=== PATIENT | male | born 1990 | race American Indian/Alaskan Native ===

== ENCOUNTER 2019-04-23 14:10 | Emergency (ER) | payer MEDICARE ==
[2019-04-23 14:25] VITALS: BP 112/50
--- NOTE | 2019-04-23 14:25 | Event Note ---
ED Screening Note Date of service: 04/23/19 Time: 14:23 ED Screening Note: 28 y o f presents to ED cc of generalized pain from sickle cell crisis while at work today This initial assessment/diagnostic orders/clinical plan/treatment(s) is/are subject to change based on patients health status, clinical progression and re- assessment by fellow clinical providers in the ED. Further treatment and workup at subsequent clinical providers discretion. Patient/guardian urged not to elope from the ED as their condition may be serious if not clinically assessed and managed. Initial orders include: labs main side eval
[2019-04-23 15:55] LABS: Hematocrit 27.6 % (35.5-45.6); Hemoglobin 9.2 gm/dl (11.8-15.2); Mean Corpuscular HGB Conc 33 % (32-34); Mean Corpuscular Volume 85 fl (84-94); Platelet Count 301 K/mm3 (140-440); Red Blood Count 3.24 M/mm3 (3.65-5.03); Red Cell Distribution Width 19.9 % (13.2-15.2)
[2019-04-23 16:17] LABS: BUN/Creatinine Ratio 14; Blood Urea Nitrogen 13 mg/dL (9-20); Calcium 9.1 mg/dL (8.4-10.2); Hemolysis Index 12
[2019-04-23] MEDS ORDERED: KETOROLAC 30 MG/1 ML INJ IV ONE (16:44)
[2019-04-23] MEDS ORDERED: SODIUM CHLORIDE 0.9% 1000 ML 1,000 ML IV ONE (16:44)
--- NOTE | 2019-04-23 16:48 | Emergency Department Report ---
ED General Adult HPI - General Chief complaint: Sickle Cell Crisis Stated complaint: SICKLE CELL PAIN Time Seen by Provider: 04/23/19 16:34 Source: patient Mode of arrival: Ambulatory Limitations: No Limitations - History of Present Illness Initial comments: Patient is 28-year-old male with history of sickle cell disease. Patient presented to the ER complaining of generalized body pain for the last 2 days. Patient stated that he is on Percocet and he run out of his pain medicine today. Patient denied any fever or chills. 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 - Related Data Home Medications Medication Instructions Recorded Confirmed Last Taken Deferasirox [Exjade] 500 mg PO DAILY 05/17/13 06/03/15 06/02/15 09:00 Hydroxyurea [Hydrea] 2,000 mg PO DAILY 01/03/14 06/03/15 06/02/15 09:00 Previous Rx's Medication Instructions Recorded Last Taken Type Folic Acid [Folvite] 1 mg PO DAILY #30 tablet 05/22/13 06/02/15 09:00 Rx HYDROcodone/APAP 10-325 [[place] 1 each PO Q6HR PRN #14 tablet 06/03/15 Unknown Rx 10/325] HYDROcodone/APAP 7.5-325 [[place] 1 each PO Q6HR PRN #20 tablet 11/12/15 Unknown Rx 7.5/325] oxyCODONE /ACETAMINOPHEN [Percocet 1 tab PO Q6HR PRN #10 tablet 11/12/15 Unknown Rx 5/325] HYDROcodone/ACETAMINOPHEN [[place]amrock 1 each PO Q6HR PRN #10 tablet 03/18/18 Unknown Rx 5-325 Tablet] HYDROcodone/APAP 10-325 [[place] 1 each PO Q6H PRN #20 tablet 05/09/18 Unknown Rx 10-325 mg TAB] Ibuprofen [Motrin 800 MG tab] 800 mg PO Q8HR PRN #20 tablet 05/09/18 Unknown Rx Allergies Allergy/AdvReac Type Severity Reaction Status Date / Time meperidine HCl [From Demerol] Allergy Unknown Verified 05/09/18 10:18 ED Review of Systems ROS: Stated complaint: SICKLE CELL PAIN Other details as noted in HPI Comment: All other systems reviewed and negative Constitutional: denies: chills, fever Respiratory: denies: cough, shortness of breath Cardiovascular: denies: chest pain Gastrointestinal: denies: abdominal pain, nausea, vomiting Neurological: denies: headache ED Past Medical Hx - Past Medical History Previous Medical History?: Yes Hx Sickle Cell Disease: Yes Additional medical history: Bilateral hip AVN - Surgical History Past Surgical History?: Yes Hx Cholecystectomy: Yes Additional Surgical History: port r) chest wall, states is not working is clotted off - Social History Smoking Status: Never Smoker Substance Use Type: None - Medications Home Medications: Home Medications Medication Instructions Recorded Confirmed Last Taken Type Deferasirox [Exjade] 500 mg PO DAILY 05/17/13 06/03/15 06/02/15 09:00 History Folic Acid [Folvite] 1 mg PO DAILY #30 tablet 05/22/13 06/03/15 06/02/15 09:00 Rx Hydroxyurea [Hydrea] 2,000 mg PO DAILY 01/03/14 06/03/15 06/02/15 09:00 History HYDROcodone/APAP 10-325 [[place] 1 each PO Q6HR PRN #14 tablet 06/03/15 Unknown Rx 10/325] HYDROcodone/APAP 7.5-325 [[place] 1 each PO Q6HR PRN #20 tablet 11/12/15 Unknown Rx 7.5/325] oxyCODONE /ACETAMINOPHEN [Percocet 1 tab PO Q6HR PRN #10 tablet 11/12/15 Unkno wn Rx 5/325] HYDROcodone/ACETAMINOPHEN [[place]rock 1 each PO Q6HR PRN #10 tablet 03/18/18 Unknown Rx 5-325 Tablet] HYDROcodone/APAP 10-325 [[place]rock 1 each PO Q6H PRN #20 tablet 05/09/18 Unknown Rx 10-325 mg TAB] Ibuprofen [Motrin 800 MG tab] 800 mg PO Q8HR PRN #20 tablet 05/09/18 Unknown Rx ED Physical Exam - General Limitations: No Limitations General appearance: alert, in no apparent distress - Head Head exam: Present: atraumatic, normocephalic, normal inspection - Eye Eye exam: Present: normal appearance - ENT ENT exam: Present: normal exam, normal orophraynx, mucous membranes moist - Neck Neck exam: Present: normal inspection, full ROM. Absent: tenderness, meningismus, lymphadenopathy, thyromegaly - Respiratory Respiratory exam: Present: normal lung sounds bilaterally - Cardiovascular Cardiovascular Exam: Present: regular rate, normal rhythm, normal heart sounds - GI/Abdominal GI/Abdominal exam: Present: soft, normal bowel sounds. Absent: distended, tenderness, guarding, rebound, rigid, organomegaly, mass, bruit, pulsatile mass, hernia - Extremities Exam Extremities exam: Present: normal inspection, full ROM, normal capillary refill. Absent: pedal edema, calf tenderness - Back Exam Back exam: Present: normal inspection, full ROM. Absent: CVA tenderness (R), CVA tenderness (L) - Neurological Exam Neurological exam: Present: alert, oriented X3, CN II-XII intact, normal gait, reflexes normal - Psychiatric Psychiatric exam: Present: normal mood - Skin Skin exam: Present: warm, intact, normal color ED Course Vital Signs 04/23/19 14:22 Temperature 98.7 F Pulse Rate 100 H Respiratory 16 Rate Blood Pressure 112/50 O2 Sat by Pulse 96 Oximetry ED Medical Decision Making - Lab Data Result diagrams: 04/23/19 15:22 04/23/19 15:22 - Medical Decision Making Patient is 28-year-old male with history of sickle cell disease. Patient presented to the ER complaining of generalized body pain for the last 2 days. Patient stated that he is on Percocet and he run out of his pain medicine today. Patient denied any fever or chills. 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 Patient labs reviewed and is unremarkable. Reticulocyte count is less than his normal average. Patient is a sleeping comfortably in the ER in no distress. I have to wake him to examine him. Patient asked for Dilaudid and Benadryl and he stated that he will not take any other medication for pain. I reviewed patient reports on [facility] aware and I found that patient had just filled a prescription for Percocets, 90 tablets on April 16 which is 7 days ago. Patient also had a multiple pharmacy and prescribers. 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 I counseled the patient on that and offer him a referral to drug rehabilitation patient declined. Critical care attestation.: If time is entered above; I have spent that time in minutes in the direct care of this critically ill patient, excluding procedure time. ED Disposition Clinical Impression: Sickle cell disease, Drug-seeking behavior, Narcotic abuse Disposition: ELOPED Is pt being admited?: No Condition: Stable Instructions: Narcotic Abuse (ED) Referrals: PRIMARY CARE, [Referring] - 3-5 Days
[2019-04-23 19:17] LABS: Basophils % (Manual) 0 % (0.0-1.8); Total Cells Counted 100
[2019-04-23 19:18] LABS: Anisocytosis 1+; Large Platelets 1+; Platelet Estimate Consistent w Auto; Sickle Cells 1+
== END 2019-04-23 17:26 | disposition left against medical advice (07) ==
LOC: ED 14:10
DX: D57.1 Sickle-cell disease without crisis (principal); F11.10 Opioid abuse, uncomplicated; Z76.5 Malingerer [conscious simulation]; Z90.49 Acquired absence of other specified parts of digestive tract; Z79.899 Other long term (current) drug therapy; Z88.8 Allergy status to other drugs, medicaments and biological substances
CPT/HCPCS: 36415; 80048; 85007; 85025; 85045; 96374; 99283; J1885; J7030

== ENCOUNTER 2019-07-15 10:20 | Emergency (ER) | payer MEDICARE ==
[2019-07-15] MEDS ORDERED: ONDANSETRON 4 MG/2 ML INJ IV ONE (11:35)
[2019-07-15] MEDS ORDERED: MORPHINE 4 MG/1 ML INJ IV ONE ×2 (11:35→12:30)
[2019-07-15] MEDS ORDERED: SODIUM CHLORIDE 0.9% 1000 ML 1,000 ML IV ONE ×2 (11:35)
[2019-07-15] MEDS ORDERED: diphenhydrAMINE 50 MG/ML VIAL IV ONE (11:38)
[2019-07-15 11:50] LABS: Hematocrit 24.1 % (35.5-45.6); Mean Corpuscular HGB Conc 33 % (32-34); Mean Corpuscular Volume 80 fl (84-94); Platelet Count 476 K/mm3 (140-440)
[2019-07-15 11:55] LABS: Red Cell Distribution Width 28.1 % (13.2-15.2)
--- NOTE | 2019-07-15 11:59 | Emergency Department Report ---
ED General Adult HPI - General Chief complaint: Sickle Cell Crisis Stated complaint: SICKLE CELL CRISIS Time Seen by Provider: 07/15/19 11:12 Source: patient Mode of arrival: Ambulatory Limitations: No Limitations - History of Present Illness Initial comments: Patient presents to the emergency department with a chief complaint of sickle cell crisis. Patient states for the last week he has been fighting a sinus cold and was treating his sickle cell pain at home with hydroxyurea, folic acid, and occasional Percocet. Patient states this morning he went out of his home to take his nephew to school in the cold weather causes pain to become worse. Sai james denies any chest pain. Patient states the pain is located in his elbows and knees which is consistent with his prior sickle cell flareups. -: Gradual Severity scale (0 -10): 9 Quality: sharp Consistency: constant Improves with: none Worsens with: none Associated Symptoms: denies other symptoms Treatments Prior to Arrival: none - Related Data Home Medications Medication Instructions Recorded Confirmed Last Taken Deferasirox [Exjade] 500 mg PO DAILY 05/17/13 06/03/15 06/02/15 09:00 Hydroxyurea [Hydrea] 2,000 mg PO DAILY 01/03/14 06/03/15 06/02/15 09:00 Previous Rx's Medication Instructions Recorded Last Taken Type Folic Acid [Folvite] 1 mg PO DAILY #30 tablet 05/22/13 06/02/15 09:00 Rx HYDROcodone/APAP 10-325 [Omega 1 each PO Q6HR PRN #14 tablet 06/03/15 Unknown Rx 10/325] HYDROcodone/APAP 7.5-325 [Omega 1 each PO Q6HR PRN #20 tablet 11/12/15 Unknown Rx 7.5/325] oxyCODONE /ACETAMINOPHEN [Percocet 1 tab PO Q6HR PRN #10 tablet 11/12/15 Unknown Rx 5/325] HYDROcodone/ACETAMINOPHEN [Omega 1 each PO Q6HR PRN #10 tablet 03/18/18 Unknown Rx 5-325 Tablet] HYDROcodone/APAP 10-325 [Omega 1 each PO Q6H PRN #20 tablet 05/09/18 Unknown Rx 10-325 mg TAB] Ibuprofen [Motrin 800 MG tab] 800 mg PO Q8HR PRN #20 tablet 05/09/18 Unknown Rx Oxycodone HCl/Acetaminophen 1 each PO Q6HR PRN #12 tablet 07/15/19 Unknown Rx [Percocet 10/325 mg] Allergies Allergy/AdvReac Type Severity Reaction Status Date / Time meperidine HCl [From Demerol] Allergy Unknown Verified 05/09/18 10:18 ED Review of Systems ROS: Stated complaint: SICKLE CELL CRISIS Other details as noted in HPI Constitutional: denies: chills, fever Eyes: denies: eye pain, eye discharge, vision change ENT: denies: ear pain, throat pain Respiratory: denies: cough, shortness of breath, wheezing Cardiovascular: denies: chest pain, palpitations Endocrine: no symptoms reported Gastrointestinal: denies: abdominal pain, nausea, diarrhea Genitourinary: denies: urgency, dysuria Musculoskeletal: denies: back pain, joint swelling, arthralgia Skin: denies: rash, lesions Neurological: denies: headache, weakness, paresthesias Psychiatric: denies: anxiety, depression Hematological/Lymphatic: denies: easy bleeding, easy bruising ED Past Medical Hx - Past Medical History Previous Medical History?: Yes Hx Sickle Cell Disease: Yes Additional medical history: Bilateral hip AVN - Surgical History Past Surgical History?: Yes Hx Cholecystectomy: Yes Additional Surgical History: port r) chest wall, states is not working is clotted off - Social History Smoking Status: Never Smoker Substance Use Type: None - Medications Home Medications: Home Medications Medication Instructions Recorded Confirmed Last Taken Type Deferasirox [Exjade] 500 mg PO DAILY 05/17/13 06/03/15 06/02/15 09:00 History Folic Acid [Folvite] 1 mg PO DAILY #30 tablet 05/22/13 06/03/15 06/02/15 09:00 Rx Hydroxyurea [Hydrea] 2,000 mg PO DAILY 01/03/14 06/03/15 06/02/15 09:00 History HYDROcodone/APAP 10-325 [Omega 1 each PO Q6HR PRN #14 tablet 06/03/15 Unknown Rx 10/325] HYDROcodone/APAP 7.5-325 [Omega 1 each PO Q6HR PRN #20 tablet 11/12/15 Unknown Rx 7.5/325] oxyCODONE /ACETAMINOPHEN [Percocet 1 tab PO Q6HR PRN #10 tablet 06/30/16 Unknown Rx 5/325] HYDROcodone/ACETAMINOPHEN [Omega 1 each PO Q6HR PRN #10 tablet 03/18/18 Unknown Rx 5-325 Tablet] HYDROcodone/APAP 10-325 [Omega 1 each PO Q6H PRN #20 tablet 05/09/18 Unknown Rx 10-325 mg TAB] Ibuprofen [Motrin 800 MG tab] 800 mg PO Q8HR PRN #20 tablet 05/09/18 Unknown Rx Oxycodone HCl/Acetaminophen 1 each PO Q6HR PRN #12 tablet 07/15/19 Unknown Rx [Percocet 10/325 mg] ED Physical Exam - General Limitations: No Limitations General appearance: alert, in no apparent distress - Head Head exam: Present: atraumatic, normocephalic - Eye Eye exam: Present: normal appearance, PERRL, EOMI - ENT ENT exam: Present: mucous membranes dry - Neck Neck exam: Present: normal inspection - Respiratory Respiratory exam: Present: normal lung sounds bilaterally. Absent: respiratory distress - Cardiovascular Cardiovascular Exam: Present: regular rate, normal rhythm. Absent: systolic murmur, diastolic murmur, rubs, gallop - GI/Abdominal GI/Abdominal exam: Present: soft, normal bowel sounds. Absent: distended, tenderness - Rectal Rectal exam: Present: deferred - Extremities Exam Extremities exam: Present: normal inspection - Back Exam Back exam: Present: normal inspection - Neurological Exam Neurological exam: Present: alert, oriented X3, CN II-XII intact. Absent: motor sensory deficit - Psychiatric Psychiatric exam: Present: normal affect, normal mood - Skin Skin exam: Present: warm, dry, intact, normal color. Absent: rash ED Course Vital Signs 07/15/19 07/15/19 07/15/19 10:25 11:41 11:53 Temperature 97.8 F Pulse Rate 70 81 Respiratory 20 15 16 Rate Blood Pressure 104/56 Blood Pressure 106/56 [Right] O2 Sat by Pulse 98 99 Oximetry ED Medical Decision Making - Lab Data Result diagrams: 07/15/19 11:28 07/15/19 11:28 Lab Results 07/15/19 07/15/19 Range/Units 11:28 11:28 WBC 14.4 H (4.5-11.0) K/mm3 RBC 3.00 L (3.65-5.03) M/mm3 Hgb 8.0 L (11.8-15.2) gm/dl Hct 24.1 L (35.5-45.6) % MCV 80 L (84-94) fl MCH 27 L (28-32) pg MCHC 33 (32-34) % RDW 28.1 H (13.2-15.2) % Plt Count 476 H (140-440) K/mm3 Lymph # Tripe Cooker Add Manual Diff Complete Total Counted 100 Seg Neuts % (Manual) 50.0 (40.0-70.0) % Band Neutrophils % 1.0 % Lymphocytes % (Manual) 35.0 (13.4-35.0) % Reactive Lymphs % (Man) 0 % Monocytes % (Manual) 6.0 (0.0-7.3) % Eosinophils % (Manual) 8.0 H (0.0-4.3) % Basophils % (Manual) 0 (0.0-1.8) % Metamyelocytes % 0 % Myelocytes % 0 % Promyelocytes % 0 % Blast Cells % 0 % Nucleated RBC % Not Reportable Seg Neutrophils # Man 7.2 (1.8-7.7) K/mm3 Band Neutrophils # 0.1 K/mm3 Lymphocytes # (Manual) 5.0 (1.2-5.4) K/mm3 Abs React Lymphs (Man) 0.0 K/mm3 Monocytes # (Manual) 0.9 H (0.0-0.8) K/mm3 Eosinophils # (Manual) 1.2 H (0.0-0.4) K/mm3 Basophils # (Manual) 0.0 (0.0-0.1) K/mm3 Metamyelocytes # 0.0 K/mm3 Myelocytes # 0.0 K/mm3 Promyelocytes # 0.0 K/mm3 Blast Cells # 0.0 K/mm3 WBC Morphology Not Reportable Hypersegmented Neuts Not Reportable Hyposegmented Neuts Not Reportable Hypogranular Neuts Not Reportable Smudge Cells Not Reportable Toxic Granulation Not Reportable Toxic Vacuolation Not Reportable Dohle Bodies Not Reportable Pelger-Huet Anomaly Not Reportable Jailene Rods Not Reportable Platelet Estimate Consistent w auto Clumped Platelets Not Reportable Plt Clumps, EDTA Not Reportable Large Platelets Not Reportable Giant Platelets Not Reportable Platelet Satelliting Not Reportable Plt Morphology Comment Not Reportable RBC Morphology Not Reportable Dimorphic RBCs Not Reportable Polychromasia 1+ Hypochromasia Not Reportable Poikilocytosis Not Reportable Anisocytosis 1+ Microcytosis Not Reportable Macrocytosis Not Reportable Spherocytes Not Reportable Pappenheimer Bodies Not Reportable Sickle Cells 1+ Target Cells Not Reportable Tear Drop Cells Not Reportable Ovalocytes Not Reportable Helmet Cells Not Reportable [place] Bodies Not Reportable [place] Rings Not Reportable [place] Cells Not Reportable Bite Cells Not Reportable Crenated Cell Not Reportable Elliptocytes Not Reportable Acanthocytes (Spur) Not Reportable Rouleaux Not Reportable Hemoglobin C Crystals Not Reportable Schistocytes Not Reportable Malaria parasites Not Reportable Percent Retic 11.99 H (0.78-2.58) % Te Bodies Not Reportable Hem Pathologist Commnt No Sodium 139 (137-145) mmol/L Potassium 4.9 (3.6-5.0) mmol/L Chloride 102.2 (98-107) mmol/L Carbon Dioxide 22 (22-30) mmol/L Anion Gap 20 mmol/L BUN 10 (9-20) mg/dL Creatinine 0.7 L (0.8-1.5) mg/dL Estimated GFR > 60 ml/min BUN/Creatinine Ratio 14 % Glucose 94 (75-100) mg/dL Calcium 9.6 (8.4-10.2) mg/dL Total Bilirubin 1.60 H (0.1-1.2) mg/dL AST 45 H (5-40) units/L ALT 21 (7-56) units/L Alkaline Phosphatase 101 (35-129) units/L Lactate Dehydrogenase 370 H (91-180) units/L Total Protein 7.5 (6.3-8.2) g/dL Albumin 4.6 (3.9-5) g/dL Albumin/Globulin Ratio 1.6 % - Medical Decision Making Patient symptoms improved after IV pain medications. Critical care attestation.: If time is entered above; I have spent that time in minutes in the direct care of this critically ill patient, excluding procedure time. ED Disposition Clinical Impression: Sickle cell crisis Disposition: DC-01 TO HOME OR SELFCARE Is pt being admited?: No Does the pt Need Aspirin: No Condition: Stable Instructions: Sickle Cell Crisis (ED) Additional Instructions: return if worse Prescriptions: Oxycodone HCl/Acetaminophen [Percocet 10/325 mg] 1 each PO Q6HR PRN #12 tablet PRN Reason: Pain Referrals: PRIMARY CARE,MD [Primary Care Provider] - 3-5 Days [facility] [Provider Group] - 3-5 Days [facility] [Provider Group] - 3-5 Days Time of Disposition: 13:39
[2019-07-15 12:11] LABS: Alanine Aminotransferase 21 units/L (7-56); Albumin 4.6 g/dL (3.9-5); BUN/Creatinine Ratio 14; Blood Urea Nitrogen 10 mg/dL (9-20); Calcium 9.6 mg/dL (8.4-10.2); Hemolysis Index 85
[2019-07-15] MEDS ORDERED: HYDROmorphone 1 MG/1 ML INJ IV ONE ×3 (12:40→13:37)
[2019-07-15] MEDS ORDERED: HYDROmorphone 1 MG/1 ML INJ ONE (12:44)
[2019-07-15 13:02] LABS: Band Neutrophils # (Manual) 0.1 K/mm3; Basophils % (Manual) 0 % (0.0-1.8); Total Cells Counted 100
[2019-07-15 13:03] LABS: Anisocytosis 1+; Sickle Cells 1+
[2019-07-15 13:04] LABS: Platelet Estimate Consistent w Auto
--- NOTE | 2019-07-15 13:52 | XRay Report ---
CHEST 1 VIEW INDICATION: cough. COMPARISON: None. FINDINGS: Support devices: S port in satisfactory position. Heart: Mild cardiomegaly. Lungs/Pleura: Additional lung volumes. No acute abnormality. Additional findings: Diffuse bony sclerosis. IMPRESSION: 1. Mild cardiomegaly. 2. No acute infiltrate. 3. Chronic bony changes likely on the basis of renal osteodystrophy or sickle cell disease. Signer Name: Brannon Villafana MD Signed: 07/15/2019 1:47 PM Workstation Name: [id number]
[2019-07-15 14:00] VITALS: BP 105/53
== END 2019-07-15 13:57 | disposition home or self-care (01) ==
LOC: ED 10:20
DX: D57.00 Hb-SS disease with crisis, unspecified (principal); Z88.5 Allergy status to narcotic agent; Z98.890 Other specified postprocedural states; Z90.49 Acquired absence of other specified parts of digestive tract; Z79.899 Other long term (current) drug therapy
CPT/HCPCS: 36415; 71045; 80053; 83615; 85007; 85025; 85045; 96374; 96375; 96376; 99284; J1170; J1200; J2270; J2405; J7030

== ENCOUNTER 2019-08-05 04:26 | Emergency (ER) | payer MEDICARE | END 2019-08-05 05:30 | LOC: ED 04:26 | DX: D57.219 Sickle-cell/Hb-C disease with crisis, unspecified (principal); Z53.21 Procedure and treatment not carried out due to patient leaving prior to being seen by health care provider ==

== ENCOUNTER 2019-10-17 04:16 | Emergency (ER) | payer MEDICARE ==
[2019-10-17] MEDS ORDERED: diphenhydrAMINE 25 MG CAP PO ONE (04:57)
[2019-10-17] MEDS ORDERED: HYDROmorphone 2 MG/1 ML INJ IV ONE (04:57)
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
[2019-10-17] MEDS ORDERED: D5W/0.45% NACL 1,000 ML IV SCH (05:00)
[2019-10-17 05:29] LABS: Hematocrit 23.2 % (35.5-45.6); Hemoglobin 7.9 gm/dl (11.8-15.2); Mean Corpuscular HGB Conc 34 % (32-34); Mean Corpuscular Volume 88 fl (84-94); Platelet Count 305 K/mm3 (140-440); Red Blood Count 2.62 M/mm3 (3.65-5.03)
[2019-10-17 05:33] LABS: Red Cell Distribution Width 21.6 % (13.2-15.2)
[2019-10-17 05:44] LABS: BUN/Creatinine Ratio 20; Blood Urea Nitrogen 18 mg/dL (9-20); Calcium 9.5 mg/dL (8.4-10.2); Hemolysis Index 13
[2019-10-17] MEDS ORDERED: SODIUM CHLORIDE 0.9% 1000 ML 1,000 ML IV ONE (06:38)
[2019-10-17] MEDS ORDERED: HYDROmorphone 1 MG/1 ML INJ IV ONE (06:38)
[2019-10-17] MEDS ORDERED: ONDANSETRON 4 MG/2 ML INJ IV ONE (06:39)
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
[2019-10-17 08:29] VITALS: BP 106/48
== END 2019-10-17 08:16 | disposition home or self-care (01) ==
LOC: ED 04:16
DX: D57.00 Hb-SS disease with crisis, unspecified (principal); G89.4 Chronic pain syndrome; Z79.899 Other long term (current) drug therapy; Z88.8 Allergy status to other drugs, medicaments and biological substances; Z98.890 Other specified postprocedural states; Z90.49 Acquired absence of other specified parts of digestive tract
CPT/HCPCS: 36415; 80048; 82550; 83735; 85027; 85045; 96374; 96375; 96376; 99284; J1170; J2405; J7030

== ENCOUNTER 2019-11-02 13:22 | Emergency (ER) | payer MEDICARE ==
[2019-11-02 14:23] LABS: Basophils # (Auto) 0.1 K/mm3 (0.0-0.1); Basophils % (Auto) 0.5 % (0.0-1.8); Eosinophils # (Auto) 1.1 K/mm3 (0.0-0.4); Eosinophils % (Auto) 6.6 % (0.0-4.3); Hematocrit 23.9 % (35.5-45.6); Hemoglobin 8.1 gm/dl (11.8-15.2); Lymphocytes # (Auto) 3.9 K/mm3 (1.2-5.4); Lymphocytes % (Auto) 22.4 % (13.4-35.0); Mean Corpuscular HGB Conc 34 % (32-34); Mean Corpuscular Volume 93 fl (84-94); Monocytes # (Auto) 1.6 K/mm3 (0.0-0.8); Monocytes % (Auto) 8.9 % (0.0-7.3); Platelet Count 291 K/mm3 (140-440); Red Blood Count 2.58 M/mm3 (3.65-5.03)
[2019-11-02 14:34] LABS: Red Cell Distribution Width 21.2 % (13.2-15.2)
[2019-11-02 14:36] LABS: Alanine Aminotransferase 16 units/L (7-56); Albumin 4.9 g/dL (3.9-5); BUN/Creatinine Ratio 15; Blood Urea Nitrogen 12 mg/dL (9-20); Calcium 9.5 mg/dL (8.4-10.2); Hemolysis Index 24
[2019-11-02] MEDS ORDERED: diphenhydrAMINE 50 MG/ML VIAL IV ONE (16:15)
[2019-11-02] MEDS ORDERED: ONDANSETRON 4 MG/2 ML INJ IV ONE (16:15)
[2019-11-02] MEDS ORDERED: KETOROLAC 30 MG/1 ML INJ IV ONE (16:15)
[2019-11-02] MEDS ORDERED: HYDROmorphone 1 MG/1 ML INJ IV ONE ×4 (16:15→18:19)
--- NOTE | 2019-11-02 16:19 | Emergency Department Report ---
HPI - General Chief Complaint: Sickle Cell Crisis Time Seen by Provider: 11/02/19 16:15 - HPI HPI: Room 6 The patient is a 29-year-old male present with a chief complaint of sickle cell pain crisis. The patient states he presents with pain from his sickle cell crisis which began today. Patient complains of pain mostly in his bilateral lower extremities but states this also his "entire body." Patient states the pain feels like a sickle cell pain crisis. Patient denies history of fever. Patient states he took his normal medication including Randolph this morning but it did not help. The patient gives his pain a score of 10/10 ED Past Medical Hx - Past Medical History Previous Medical History?: Yes Hx Sickle Cell Disease: Yes Additional medical history: Bilateral hip AVN - Surgical History Past Surgical History?: Yes Hx Cholecystectomy: Yes Additional Surgical History: port right chest wall - Family History Family history: no significant - Social History Smoking Status: Never Smoker Substance Use Type: None (Denies illicit drug use), Prescribed - Medications Home Medications: Home Medications Medication Instructions Recorded Confirmed Last Taken Type Deferasirox [Exjade] 500 mg PO DAILY 05/17/13 06/03/15 06/02/15 09:00 History Folic Acid [Folvite] 1 mg PO DAILY #30 tablet 05/22/13 06/03/15 06/02/15 09:00 Rx Hydroxyurea [Hydrea] 2,000 mg PO DAILY 01/03/14 06/03/15 06/02/15 09:00 History HYDROcodone/APAP 10-325 [Randolph 1 each PO Q6HR PRN #14 tablet 06/03/15 Unknown Rx 10/325] HYDROcodone/APAP 7.5-325 [Randolph 1 each PO Q6HR PRN #20 tablet 11/12/15 Unknown Rx 7.5/325] oxyCODONE /ACETAMINOPHEN [Percocet 1 tab PO Q6HR PRN #10 tablet 11/12/15 Un known Rx 5/325] HYDROcodone/ACETAMINOPHEN [Randolph 1 each PO Q6HR PRN #10 tablet 03/18/18 Unknown Rx 5-325 Tablet] HYDROcodone/APAP 10-325 [Randolph 1 each PO Q6H PRN #20 tablet 05/09/18 Unknown Rx 10-325 mg TAB] Ibuprofen [Motrin 800 MG tab] 800 mg PO Q8HR PRN #20 tablet 05/09/18 Unknown Rx Oxycodone HCl/Acetaminophen 1 each PO Q6HR PRN #12 tablet 07/15/19 Unknown Rx [Percocet 10/325 mg] Cyclobenzaprine [Flexeril] 10 mg PO QHS PRN #10 tablet 10/03/19 Unknown Rx Naproxen 500 mg PO Q12H PRN #12 tablet 10/03/19 Unknown Rx oxyCODONE /ACETAMINOPHEN [Percocet 1 tab PO Q6HR PRN #10 tablet 10/17/19 Unknown Rx 5/325] Cyclobenzaprine [Flexeril] 10 mg PO TID PRN #10 tablet 11/02/19 Unknown Rx ED Review of Systems ROS: Stated complaint: SICKLE CELL Other details as noted in HPI Constitutional: denies: fever Respiratory: no symptoms reported Endocrine: no symptoms reported Hematological/Lymphatic: other (Sickle cell pain crisis) Physical Exam - Physical Exam Vital Signs: Vital Signs 11/02/19 13:26 Temperature 98.9 F Pulse Rate 65 Respiratory 18 Rate Blood Pressure 103/59 O2 Sat by Pulse 97 Oximetry Physical Exam: GENERAL: The patient is well-developed well-nourished male lying on stretcher appearing to be in mild discomfort. [] HEENT: Normocephalic. Atraumatic. Extraocular motions are intact. Patient has moist mucous membranes. NECK: Supple. Trachea midline CHEST/LUNGS: Clear to auscultation. There is no respiratory distress noted. HEART/CARDIOVASCULAR: Regular. There is no tachycardia. There is no gallop rub or murmur. ABDOMEN: Abdomen is soft, nontender. Patient has normal bowel sounds. There is no abdominal distention. SKIN: There is no rash. There is no edema. There is no diaphoresis. NEURO: The patient is awake, alert, and oriented. The patient is cooperative. The patient has normal speech MUSCULOSKELETAL:There is no evidence of acute injury. ED Course Vital Signs 11/02/19 13:26 Temperature 98.9 F Pulse Rate 65 Respiratory 18 Rate Blood Pressure 103/59 O2 Sat by Pulse 97 Oximetry - Reevaluation(s) Reevaluation #1: 11/02/19 19:01 Patient states he is doing much better now. ED Medical Decision Making - Lab Data Result diagrams: 11/02/19 13:53 06/20/20 13:53 Laboratory Tests 11/02/19 11/02/19 13:53 13:53 WBC 17.5 H RBC 2.58 L Hgb 8.1 L Hct 23.9 L MCV 93 MCH 31 MCHC 34 RDW 21.2 H Plt Count 291 Lymph % (Auto) 22.4 [place] % (Auto) 8.9 H Eos % (Auto) 6.6 H Baso % (Auto) 0.5 Lymph # 3.9 [place] # 1.6 H Eos # 1.1 H Baso # 0.1 Seg Neutrophils % 61.6 Seg Neutrophils # 10.8 H Percent Retic 13.67 H Sodium 140 Potassium 4.5 Chloride 104.4 Carbon Dioxide 21 L Anion Gap 19 BUN 12 Creatinine 0.8 Estimated GFR > 60 BUN/Creatinine Ratio 15 Glucose 90 Calcium 9.5 Total Bilirubin 1.80 H AST 28 ALT 16 Alkaline Phosphatase 90 Total Protein 7.5 Albumin 4.9 Albumin/Globulin Ratio 1.9 - Differential Diagnosis Sickle cell pain crisis Critical care attestation.: If time is entered above; I have spent that time in minutes in the direct care of this critically ill patient, excluding procedure time. ED Disposition Clinical Impression: Sickle cell crisis Disposition: DC-01 TO HOME OR SELFCARE Is pt being admited?: No Does the pt Need Aspirin: No Condition: Stable Instructions: Sickle Cell Crisis (ED) Additional Instructions: Return to the emergency department should you develop worsening symptoms, inability to tolerate food or liquids, high fever or any other concerns Prescriptions: Cyclobenzaprine [Flexeril] 10 mg PO TID PRN #10 tablet PRN Reason: Muscle Spasm Referrals: Dr. Dobbins, hematology [Other] - 3-5 Days Time of Disposition: 19:04
[2019-11-02] MEDS ORDERED: D5W/0.2% NACL 1,000 ML IV SCH (17:00)
[2019-11-02 21:00] VITALS: BP 106/71
== END 2019-11-02 19:35 | disposition home or self-care (01) ==
LOC: ED 13:22
DX: D57.819 Other sickle-cell disorders with crisis, unspecified (principal); Z90.49 Acquired absence of other specified parts of digestive tract; Z88.1 Allergy status to other antibiotic agents; Z79.899 Other long term (current) drug therapy
CPT/HCPCS: 36415; 80053; 85025; 85045; 96374; 96375; 96376; 99283; J1170; J1200; J1885; J2405

== ENCOUNTER 2019-11-10 19:14 | Emergency (ER) | payer MEDICARE ==
--- NOTE | 2019-11-10 19:24 | Emergency Department Report ---
Blank Doc - Documentation Documentation: 29-year-old male that presents with generalized pain from sickle cell. This initial assessment/diagnostic orders/clinical plan/treatment(s) is/are subject to change based on patient's health status, clinical progression and re- assessment by fellow clinical providers in the ED. Further treatment and workup at subsequent clinical providers discretion. Patient/guardians urged not to elope from the ED as their condition may be serious if not clinically assessed and managed. Initial orders include: 1- Patient sent to MAIN ED for further evaluation and treatment 2- labs 3- UA
[2019-11-10 19:47] LABS: Hematocrit 24.9 % (35.5-45.6); Hemoglobin 8.3 gm/dl (11.8-15.2); Mean Corpuscular HGB Conc 34 % (32-34); Mean Corpuscular Volume 92 fl (84-94); Platelet Count 377 K/mm3 (140-440); Red Blood Count 2.71 M/mm3 (3.65-5.03)
[2019-11-10 20:09] LABS: BUN/Creatinine Ratio 13; Blood Urea Nitrogen 12 mg/dL (9-20); Calcium 9.1 mg/dL (8.4-10.2)
[2019-11-10 20:10] LABS: Alanine Aminotransferase 11 units/L (7-56); Albumin 4.5 g/dL (3.9-5)
[2019-11-10] MEDS ORDERED: HYDROmorphone 1 MG/1 ML INJ IV ONE ×2 (20:13→22:03)
[2019-11-10] MEDS ORDERED: KETOROLAC 30 MG/1 ML INJ IV ONE (20:13)
[2019-11-10] MEDS ORDERED: diphenhydrAMINE 50 MG/ML VIAL IV ONE (20:13)
[2019-11-10] MEDS ORDERED: ONDANSETRON 4 MG/2 ML INJ IV ONE (20:13)
[2019-11-10] MEDS ORDERED: POTASSIUM CHLORIDE ER 20 MEQ TAB PO ONE (20:15)
--- NOTE | 2019-11-10 20:15 | Emergency Department Report ---
HPI - General Chief Complaint: Sickle Cell Crisis Time Seen by Provider: 11/10/19 19:23 - HPI HPI: Room 23 The patient is a 29-year-old male present with a chief complaint of sickle cell pain crisis. The patient states his pain started this morning in his lower back near his tailbone but then rapidly spread to become "all over." Patient complains of body cramping. Patient states the pain feels consistent with his previous sickle cell pain crises. Patient denies fever or cough. Patient currently gives his pain a score of 9/10 ED Past Medical Hx - Past Medical History Previous Medical History?: Yes Hx Sickle Cell Disease: Yes Additional medical history: Bilateral hip AVN - Surgical History Past Surgical History?: Yes Hx Cholecystectomy: Yes Additional Surgical History: port right chest wall - Family History Family history: no significant - Social History Smoking Status: Never Smoker Substance Use Type: None - Medications Home Medications: Home Medications Medication Instructions Recorded Confirmed Last Taken Type Deferasirox [Exjade] 500 mg PO DAILY 05/17/13 06/03/15 06/02/15 09:00 History Folic Acid [Folvite] 1 mg PO DAILY #30 tablet 05/22/13 06/03/15 06/02/15 09:00 Rx Hydroxyurea [Hydrea] 2,000 mg PO DAILY 01/03/14 06/03/15 06/02/15 09:00 History HYDROcodone/APAP 10-325 [[place] 1 each PO Q6HR PRN #14 tablet 06/03/15 Unknown Rx 10/325] HYDROcodone/APAP 7.5-325 [[place] 1 each PO Q6HR PRN #20 tablet 11/12/15 Unknown Rx 7.5/325] oxyCODONE /ACETAMINOPHEN [Percocet 1 tab PO Q6HR PRN #10 tablet 11/12/15 Unknown Rx 5/325] HYDROcodone/ACETAMINOPHEN [[place] 1 each PO Q6HR PRN #10 tablet 03/18/18 Unknown Rx 5-325 Tablet] HYDROcodone/APAP 10-325 [[place] 1 each PO Q6H PRN #20 tablet 05/09/18 Unknown Rx 10-325 mg TAB] Ibuprofen [Motrin 800 MG tab] 800 mg PO Q8HR PRN #20 tablet 05/09/18 Unknown Rx Oxycodone HCl/Acetaminophen 1 each PO Q6HR PRN #12 tablet 07/15/19 Unknown Rx [Percocet 10/325 mg] Cyclobenzaprine [Flexeril] 10 mg PO QHS PRN #10 tablet 10/03/19 Unknown Rx Naproxen 500 mg PO Q12H PRN #12 tablet 10/03/19 Unknown Rx oxyCODONE /ACETAMINOPHEN [Percocet 1 tab PO Q6HR PRN #10 tablet 10/17/19 Un known Rx 5/325] Cyclobenzaprine [Flexeril] 10 mg PO TID PRN #10 tablet 11/02/19 Unknown Rx HYDROcodone/APAP 5-325 [[place] 1 - 2 each PO Q6HR PRN #10 tablet 11/11/19 Unknown Rx 5/325] ED Review of Systems ROS: Stated complaint: SICKLE CELL CRISIS Other details as noted in HPI Constitutional: denies: fever Eyes: denies: eye pain ENT: denies: throat pain Respiratory: no symptoms reported Endocrine: no symptoms reported Hematological/Lymphatic: other (Sickle cell pain crisis) Physical Exam - Physical Exam Vital Signs: Vital Signs 11/10/19 19:19 Temperature 98.5 F Pulse Rate 80 Respiratory 18 Rate Blood Pressure 104/61 O2 Sat by Pulse 100 Oximetry Physical Exam: GENERAL: The patient is well-developed well-nourished male lying on stretcher not appearing to be in acute distress. [] HEENT: Normocephalic. Atraumatic. Extraocular motions are intact. Patient has moist mucous membranes. NECK: Supple. Trachea midline CHEST/LUNGS: Clear to auscultation. There is no respiratory distress noted. HEART/CARDIOVASCULAR: Regular. There is no tachycardia. There is no gallop rub or murmur. ABDOMEN: Abdomen is soft, nontender. Patient has normal bowel sounds. There is no abdominal distention. SKIN: There is no rash. There is no edema. There is no diaphoresis. NEURO: The patient is awake, alert, and oriented. The patient is cooperative. The patient has normal speech MUSCULOSKELETAL:There is no evidence of acute injury. ED Course Vital Signs 11/10/19 19:19 Temperature 98.5 F Pulse Rate 80 Respiratory 18 Rate Blood Pressure 104/61 O2 Sat by Pulse 100 Oximetry ED Medical Decision Making - Lab Data Result diagrams: 11/10/19 19:32 11/10/19 19:32 Laboratory Tests 11/10/19 11/10/19 11/10/19 19:32 19:32 23:08 WBC 13.7 H RBC 2.71 L Hgb 8.3 L Hct 24.9 L MCV 92 MCH 31 MCHC 34 RDW 23.0 H Plt Count 377 Lymph # Management [employer] Add Manual Diff Complete Total Counted 100 Seg Neuts % (Manual) 58.0 Band Neutrophils % 0 Lymphocytes % (Manual) 31.0 Reactive Lymphs % (Man) 0 Monocytes % (Manual) 6.0 Eosinophils % (Manual) 1.0 Basophils % (Manual) 1.0 Metamyelocytes % 3.0 Myelocytes % 0 Promyelocytes % 0 Blast Cells % 0 Nucleated RBC % 9.0 H Seg Neutrophils # Man 8.6 H Band Neutrophils # 0.0 Lymphocytes # (Manual) 4.6 Abs React Lymphs (Man) 0.0 Monocytes # (Manual) 0.9 H Eosinophils # (Manual) 0.1 Basophils # (Manual) 0.1 Metamyelocytes # 0.4 Myelocytes # 0.0 Promyelocytes # 0.0 Blast Cells # 0.0 WBC Morphology Not Reportable Hypersegmented Neuts Not Reportable Hyposegmented Neuts Not Reportable Hypogranular Neuts Not Reportable Smudge Cells Not Reportable Toxic Granulation Not Reportable Toxic Vacuolation Not Reportable Dohle Bodies Not Reportable Pelger-Huet Anomaly Not Reportable Jailene Rods Not Reportable Platelet Estimate Consistent w auto Clumped Platelets Not Reportable Plt Clumps, EDTA Not Reportable Large Platelets Not Reportable Giant Platelets Not Reportable Platelet Satelliting Not Reportable Plt Morphology Comment Not Reportable RBC Morphology Not Reportable Dimorphic RBCs Not Reportable Polychromasia Few Hypochromasia Not Reportable Poikilocytosis Not Reportable Anisocytosis 1+ Microcytosis 1+ Macrocytosis Few Spherocytes Not Reportable Pappenheimer Bodies Not Reportable Sickle Cells 1+ Target Cells Rare Tear Drop Cells Not Reportable Ovalocytes Not Reportable Helmet Cells Not Reportable [place] Bodies Not Reportable [place] Rings Not Reportable [place] Cells Not Reportable Bite Cells Not Reportable Crenated Cell Not Reportable Elliptocytes Not Reportable Acanthocytes (Spur) Not Reportable Rouleaux Not Reportable Hemoglobin C Crystals Not Reportable Schistocytes Not Reportable Malaria parasites Not Reportable Percent Retic 14.76 H Te Bodies Not Reportable Hem Pathologist Commnt No Sodium 142 Potassium 3.4 L Chloride 106.8 Carbon Dioxide 21 L Anion Gap 18 BUN 12 Creatinine 0.9 Estimated GFR > 60 BUN/Creatinine Ratio 13 Glucose 110 H Calcium 9.1 Total Bilirubin 1.90 H AST 22 ALT 11 Alkaline Phosphatase 83 Total Protein 6.7 Albumin 4.5 Albumin/Globulin Ratio 2.0 Urine Color Yellow Urine Turbidity Clear Urine pH 5.0 Ur Specific [place] 1.014 Urine Protein <15 mg/dl Urine Glucose (UA) Neg Urine Ketones Neg Urine Blood Neg Urine Nitrite Neg Urine Bilirubin Neg Urine Urobilinogen 2.0 Ur Leukocyte Esterase Tr Urine WBC (Auto) 1.0 Urine RBC (Auto) 3.0 U Epithel Cells (Auto) < 1.0 Urine Mucus Few - Differential Diagnosis Sickle cell pain crisis Critical care attestation.: If time is entered above; I have spent that time in minutes in the direct care of this critically ill patient, excluding procedure time. ED Disposition Clinical Impression: Sickle cell crisis Disposition: DC-01 TO HOME OR SELFCARE Is pt being admited?: No Does the pt Need Aspirin: No Condition: Stable Instructions: Sickle Cell Crisis (ED) Additional Instructions: Return to the emergency department should you develop worsening symptoms, inability to tolerate food or liquids, high fever or any other concerns Prescriptions: HYDROcodone/APAP 5-325 [Laurel 5/325] 1 - 2 each PO Q6HR PRN #10 tablet PRN Reason: Pain Referrals: PRIMARY CARE, [Primary Care Provider] - 3-5 Days Time of Disposition: 01:03
[2019-11-10 20:59] LABS: Total Cells Counted 100
[2019-11-10] MEDS ORDERED: D5W/0.2% NACL 1,000 ML IV SCH (21:00)
[2019-11-10 21:03] LABS: Anisocytosis 1+; Macrocytosis Few
[2019-11-10 21:04] LABS: Sickle Cells 1+; Target Cells Rare
[2019-11-10 21:05] LABS: Platelet Estimate Consistent w Auto
[2019-11-10 23:17] LABS: Bilirubin,Urine NEG (Negative); Blood,Urine NEG (Negative); Color,Urine Yellow (Yellow); Mucus,Urine FEW /HPF; Protein,Urine <15 mg/dL mg/dL (Negative)
[2019-11-11] MEDS ORDERED: HYDROmorphone 1 MG/1 ML INJ IV ONE (01:02)
[2019-11-11] MEDS ORDERED: HYDROmorphone 1 MG/1 ML INJ ONE (01:04)
[2019-11-11 02:44] VITALS: BP 115/73
== END 2019-11-11 02:05 | disposition home or self-care (01) ==
LOC: ED 19:14
DX: D57.00 Hb-SS disease with crisis, unspecified (principal); Z90.49 Acquired absence of other specified parts of digestive tract
CPT/HCPCS: 36415; 80053; 81001; 85007; 85025; 85045; 96374; 96375; 96376; 99283; J1170; J1200; J1885; J2405

== ENCOUNTER 2020-01-12 12:02 | Emergency (ER) | payer MEDICARE ==
[2020-01-12 12:11] VITALS: BP 99/56
--- NOTE | 2020-01-12 13:23 | XRay Report ---
CHEST 2 VIEWS INDICATION / CLINICAL INFORMATION: MAIN. COMPARISON: 07/15/2019 FINDINGS: SUPPORT DEVICES: Right chest wall Port-A-Cath in stable position. HEART / MEDIASTINUM: No significant abnormality. LUNGS / PLEURA: Worsened interstitial markings bilaterally are similar to prior exam. No confluent in filtrate. No pneumothorax or pleural effusion. ADDITIONAL FINDINGS: Osseous structures are unchanged prior exam. IMPRESSION: 1. No acute findings. Findings are relatively unchanged from prior exam. Signer Name: Jhonny Chaudhary MD Signed: 01/12/2020 1:19 PM Workstation Name: [id number]
[2020-01-12 13:32] LABS: Hemoglobin 8.9 gm/dl (11.8-15.2); Mean Corpuscular HGB Conc 33 % (32-34); Mean Corpuscular Volume 89 fl (84-94); Platelet Count 265 K/mm3 (140-440); Red Blood Count 3.03 M/mm3 (3.65-5.03)
[2020-01-12 13:37] LABS: Red Cell Distribution Width 23.3 % (13.2-15.2)
[2020-01-12 13:53] LABS: Alanine Aminotransferase 12 units/L (7-56); BUN/Creatinine Ratio 13; Blood Urea Nitrogen 10 mg/dL (9-20); Calcium 9.9 mg/dL (8.4-10.2); Hemolysis Index 17
[2020-01-12 14:11] LABS: Anisocytosis 1+; Band Neutrophils # (Manual) 0.2 K/mm3; Basophils % (Manual) 0 % (0.0-1.8); Hypochromasia 2+; Platelet Estimate Consistent w Auto; Poikilocytosis 1+; Schistocytes Rare; Sickle Cells 1+; Target Cells Few; Total Cells Counted 100
[2020-01-12] MEDS ORDERED: SODIUM CHLORIDE 0.9% 1000 ML 1,000 ML IV ONE ×3 (14:13→15:30)
[2020-01-12] MEDS ORDERED: diphenhydrAMINE 50 MG/ML VIAL IV ONE (14:13)
[2020-01-12] MEDS ORDERED: KETOROLAC 30 MG/1 ML INJ IV ONE (14:13)
[2020-01-12] MEDS ORDERED: HYDROmorphone 1 MG/1 ML INJ IV ONE (14:13)
[2020-01-12] MEDS ORDERED: oxyCODONE /ACETAMINOPHEN 5-325MG TAB PO ONE (15:42)
--- NOTE | 2020-01-12 15:53 | Emergency Department Report ---
ED General Adult HPI - General Chief complaint: Chest Pain Stated complaint: SICKLE CELL Time Seen by Provider: 01/12/20 14:09 Source: patient Mode of arrival: Ambulatory Limitations: No Limitations - History of Present Illness Initial comments: Patient is a 29-year-old F Citizen Of [place] male who presented with chest discomfort. States his aching throbbing pain is 9 out of 10 in severity in the sternal right anterior ribs with some radiation to his right lower back. Patient states is consistent with his sickle cell. He is out of his Percocet 10 which he uses for pain control. He denies cough congestion fevers or chills. Severity scale (0 -10): 7 - Related Data Home Medications Medication Instructions Recorded Confirmed Last Taken Deferasirox [Exjade] 500 mg PO DAILY 05/17/13 06/03/15 06/02/15 09:00 Hydroxyurea [Hydrea] 2,000 mg PO DAILY 01/03/14 06/03/15 06/02/15 09:00 Previous Rx's Medication Instructions Recorded Last Taken Type Folic Acid [Folvite] 1 mg PO DAILY #30 tablet 05/22/13 06/02/15 09:00 Rx HYDROcodone/APAP 10-325 [[place] 1 each PO Q6HR PRN #14 tablet 06/03/15 Unknown Rx 10/325] HYDROcodone/APAP 7.5-325 [[place] 1 each PO Q6HR PRN #20 tablet 11/12/15 Unknown Rx 7.5/325] oxyCODONE /ACETAMINOPHEN [Percocet 1 tab PO Q6HR PRN #10 tablet 11/12/15 Unknown Rx 5/325] HYDROcodone/ACETAMINOPHEN [[place] 1 each PO Q6HR PRN #10 tablet 03/18/18 Unknown Rx 5-325 Tablet] HYDROcodone/APAP 10-325 [[place] 1 each PO Q6H PRN #20 tablet 05/09/18 Unknown Rx 10-325 mg TAB] Ibuprofen [Motrin 800 MG tab] 800 mg PO Q8HR PRN #20 tablet 05/09/18 Unknown Rx Oxycodone HCl/Acetaminophen 1 each PO Q6HR PRN #12 tablet 07/15/19 Unknown Rx [Percocet 10/325 mg] Cyclobenzaprine [Flexeril] 10 mg PO QHS PRN #10 tablet 10/03/19 Unknown Rx Naproxen 500 mg PO Q12H PRN #12 tablet 10/03/19 Unknown Rx oxyCODONE /ACETAMINOPHEN [Percocet 1 tab PO Q6HR PRN #10 tablet 10/17/19 Unknown Rx 5/325] Cyclobenzaprine [Flexeril] 10 mg PO TID PRN #10 tablet 11/02/19 Unknown Rx HYDROcodone/APAP 5-325 [[place] 1 - 2 each PO Q6HR PRN #10 tablet 11/11/19 Unknown Rx 5/325] Ketorolac [Toradol] 10 mg PO Q6H PRN #12 tablet 01/12/20 Unknown Rx Oxycodone HCl/Acetaminophen 1 each PO Q6HR PRN #12 tablet 01/12/20 Unknown Rx [Percocet 10/325 mg] Allergies Allergy/AdvReac Type Severity Reaction Status Date / Time meperidine HCl [From Demerol] Allergy Unknown Verified 11/10/19 09:57 ED Review of Systems ROS: Stated complaint: SICKLE CELL Other details as noted in HPI Comment: All other systems reviewed and negative ED Past Medical Hx - Past Medical History Previous Medical History?: Yes Hx Sickle Cell Disease: Yes Hx COPD: No Additional medical history: Bilateral hip AVN - Surgical History Past Surgical History?: Yes Hx Cholecystectomy: Yes Additional Surgical History: port right chest wall - Social History Smoking Status: Never Smoker Substance Use Type: Prescribed - Medications Home Medications: Home Medications Medication Instructions Recorded Confirmed Last Taken Type Deferasirox [Exjade] 500 mg PO DAILY 05/17/13 06/03/15 06/02/15 09:00 History Folic Acid [Folvite] 1 mg PO DAILY #30 tablet 05/22/13 06/03/15 06/02/15 09:00 Rx Hydroxyurea [Hydrea] 2,000 mg PO DAILY 01/03/14 06/03/15 06/02/15 09:00 History HYDROcodone/APAP 10-325 [[place] 1 each PO Q6HR PRN #14 tablet 06/03/15 Unknown Rx 10/325] HYDROcodone/APAP 7.5-325 [[place] 1 each PO Q6HR PRN #20 tablet 11/12/15 Unknown Rx 7.5/325] oxyCODONE /ACETAMINOPHEN [Percocet 1 tab PO Q6HR PRN #10 tablet 11/12/15 Unknown Rx 5/325] HYDROcodone/ACETAMINOPHEN [[place] 1 each PO Q6HR PRN #10 tablet 03/18/18 Unknown Rx 5-325 Tablet] HYDROcodone/APAP 10-325 [[place] 1 each PO Q6H PRN #20 tablet 05/09/18 Unknown Rx 10-325 mg TAB] Ibuprofen [Motrin 800 MG tab] 800 mg PO Q8HR PRN #20 tablet 05/09/18 Unknown Rx Oxycodone HCl/Acetaminophen 1 each PO Q6HR PRN #12 tablet 07/15/19 Unknown Rx [Percocet 10/325 mg] Cyclobenzaprine [Flexeril] 10 mg PO QHS PRN #10 tablet 10/03/19 Unknown Rx Naproxen 500 mg PO Q12H PRN #12 tablet 10/03/19 Unknown Rx oxyCODONE /ACETAMINOPHEN [Percocet 1 tab PO Q6HR PRN #10 tablet 10/17/19 Unknown Rx 5/325] Cyclobenzaprine [Flexeril] 10 mg PO TID PRN #10 tablet 11/02/19 Unknown Rx HYDROcodone/APAP 5-325 [[place] 1 - 2 each PO Q6HR PRN #10 tablet 11/11/19 Unknown Rx 5/325] Ketorolac [Toradol] 10 mg PO Q6H PRN #12 tablet 01/12/20 Unknown Rx Oxycodone HCl/Acetaminophen 1 each PO Q6HR PRN #12 tablet 01/12/20 Unknown Rx [Percocet 10/325 mg] ED Physical Exam - General Limitations: No Limitations General appearance: alert, in no apparent distress - Head Head exam: Present: atraumatic, normocephalic - Eye Eye exam: Present: normal appearance, PERRL, EOMI - ENT ENT exam: Present: mucous membranes moist - Neck Neck exam: Present: normal inspection - Respiratory Respiratory exam: Present: normal lung sounds bilaterally, chest wall tenderness. Absent: respiratory distress, wheezes, rales, rhonchi - Cardiovascular Cardiovascular Exam: Present: regular rate, normal rhythm, normal heart sounds. Absent: systolic murmur, diastolic murmur, rubs, gallop - GI/Abdominal GI/Abdominal exam: Present: soft, normal bowel sounds. Absent: distended, tenderness, guarding, rebound - Rectal Rectal exam: Present: deferred - Extremities Exam Extremities exam: Present: normal inspection - Back Exam Back exam: Present: normal inspection - Neurological Exam Neurological exam: Present: alert, oriented X3 - Psychiatric Psychiatric exam: Present: normal affect, normal mood - Skin Skin exam: Present: warm, dry, intact, normal color. Absent: rash ED Course Vital Signs 01/12/20 01/12/20 01/12/20 12:06 14:28 14:30 Temperature 98.8 F Pulse Rate 66 Respiratory 18 18 18 Rate Blood Pressure 99/56 O2 Sat by Pulse 99 Oximetry 01/12/20 01/12/20 14:58 15:00 Temperature Pulse Rate Respiratory 16 16 Rate Blood Pressure O2 Sat by Pulse Oximetry ED Medical Decision Making - Lab Data Result diagrams: 01/12/20 12:59 01/12/20 12:59 Lab Results 01/12/20 01/12/20 Range/Units 12:59 12:59 WBC 19.0 H (4.5-11.0) K/mm3 RBC 3.03 L (3.65-5.03) M/mm3 Hgb 8.9 L (11.8-15.2) gm/dl Hct 27.0 L (35.5-45.6) % MCV 89 (84-94) fl MCH 29 (28-32) pg MCHC 33 (32-34) % RDW 23.3 H (13.2-15.2) % Plt Count 265 (140-440) K/mm3 Lymph # E Commerce Director Add Manual Diff Complete Total Counted 100 Seg Neuts % (Manual) 62.0 (40.0-70.0) % Band Neutrophils % 1.0 % Lymphocytes % (Manual) 18.0 (13.4-35.0) % Reactive Lymphs % (Man) 0 % Monocytes % (Manual) 9.0 H (0.0-7.3) % Eosinophils % (Manual) 10.0 H (0.0-4.3) % Basophils % (Manual) 0 (0.0-1.8) % Metamyelocytes % 0 % Myelocytes % 0 % Promyelocytes % 0 % Blast Cells % 0 % Nucleated RBC % Not Reportable Seg Neutrophils # Man 11.8 H (1.8-7.7) K/mm3 Band Neutrophils # 0.2 K/mm3 Lymphocytes # (Manual) 3.4 (1.2-5.4) K/mm3 Abs React Lymphs (Man) 0.0 K/mm3 Monocytes # (Manual) 1.7 H (0.0-0.8) K/mm3 Eosinophils # (Manual) 1.9 H (0.0-0.4) K/mm3 Basophils # (Manual) 0.0 (0.0-0.1) K/mm3 Metamyelocytes # 0.0 K/mm3 Myelocytes # 0.0 K/mm3 Promyelocytes # 0.0 K/mm3 Blast Cells # 0.0 K/mm3 WBC Morphology Not Reportable Hypersegmented Neuts Not Reportable Hyposegmented Neuts Not Reportable Hypogranular Neuts Not Reportable Smudge Cells Not Reportable Toxic Granulation Not Reportable Toxic Vacuolation Not Reportable Dohle Bodies Not Reportable Pelger-Huet Anomaly Not Reportable Jailene Rods Not Reportable Platelet Estimate Consistent w auto Clumped Platelets Not Reportable Plt Clumps, EDTA Not Reportable Large Platelets Not Reportable Giant Platelets Not Reportable Platelet Satelliting Not Reportable Plt Morphology Comment Not Reportable RBC Morphology Not Reportable Dimorphic RBCs Not Reportable Polychromasia Not Reportable Hypochromasia 2+ Poikilocytosis 1+ Anisocytosis 1+ Microcytosis 1+ Macrocytosis Not Reportable Spherocytes Not Reportable Pappenheimer Bodies Not Reportable Sickle Cells 1+ Target Cells Few Tear Drop Cells Not Reportable Ovalocytes Not Reportable Helmet Cells Not Reportable Camacho-Oblong Bodies Not Reportable [place] Rings Not Reportable Poornima Cells Not Reportable Bite Cells Not Reportable Crenated Cell Not Reportable Elliptocytes Few Acanthocytes (Spur) Not Reportable Rouleaux Not Reportable Hemoglobin C Crystals Not Reportable Schistocytes Rare Malaria parasites Not Reportable Percent Retic 11.44 H (0.78-2.58) % Te Bodies Not Reportable Hem Pathologist Commnt No Sodium 142 (137-145) mmol/L Potassium 4.7 (3.6-5.0) mmol/L Chloride 102.9 (98-107) mmol/L Carbon Dioxide 21 L (22-30) mmol/L Anion Gap 23 mmol/L BUN 10 (9-20) mg/dL Creatinine 0.8 (0.8-1.3) mg/dL Estimated GFR > 60 ml/min BUN/Creatinine Ratio 13 % Glucose 91 (75-100) mg/dL Calcium 9.9 (8.4-10.2) mg/dL Total Bilirubin 1.60 H (0.1-1.2) mg/dL AST 26 (5-40) units/L ALT 12 (7-56) units/L Alkaline Phosphatase 92 (35-129) units/L Troponin T < 0.010 (0.00-0.029) ng/mL Total Protein 7.6 (6.3-8.2) g/dL Albumin 5.0 (3.9-5) g/dL Albumin/Globulin Ratio 1.9 % - Radiology Data [facility] [address] [place] [address] XRay Report Signed Patient: JOREG STEWART MR# : [id number] : 1990 Acct:[id number] Age/Sex: 29 / M ADM Date: 01/12/20 Loc: ED Attending Dr: Ordering Physician: MAXIME JUSTICE Date of Service: 01/12/20 Procedure(s): XR chest routine 2V Accession Number(s): [id number] cc: MAXIME JUSTICE Fluoro Time In Minutes: CHEST 2 VIEWS INDICATION / CLINICAL INFORMATION: MAIN. COMPARISON: 07/15/2019 FINDINGS: SUPPORT DEVICES: Right chest wall Port-A-Cath in stable position. HEART / MEDIASTINUM: No significant abnormality. LUNGS / PLEURA: Worsened interstitial markings bilaterally are similar to prior exam. No confluent infiltrate. No pneumothorax or pleural effusion. ADDITIONAL FINDINGS: Osseous structures are unchanged prior exam. IMPRESSION: 1. No acute findings. Findings are relatively unchanged from prior exam. Signer Name: Jhonny Grimm MD Signed: 01/12/2020 1:19 PM Workstation Name: [id number] Transcribed By: Dictated By: JHONNY GRIMM Electronically Authenticated By: JHONNY GRIMM Signed Date/Time: 01/12/20 1319 - Medical Decision Making Patient was hydrated here in emergency department with 3 L of normal saline. Initially patient stated that his pain had not improved and was requesting additional doses of Dilaudid. Did have a long conversation with the patient that he did appear to be rather sleepy and that more IV pain medications but not be given. Patient did after this admit that he was feeling somewhat improved but again was hoping he could get something else additional for pain. We compromised at starting him back on his Percocet tens. Patient be discharged home will follow with primary care. Critical care attestation.: If time is entered above; I have spent that time in minutes in the direct care of this critically ill patient, excluding procedure time. ED Disposition Clinical Impression: Sickle cell crisis Disposition: DC-01 TO HOME OR SELFCARE Is pt being admited?: No Does the pt Need Aspirin: No Condition: Stable Instructions: Sickle Cell Crisis (ED) Prescriptions: Oxycodone HCl/Acetaminophen [Percocet 10/325 mg] 1 each PO Q6HR PRN #12 tablet PRN Reason: Pain Referrals: PRIMARY CARE, [Primary Care Provider] - 3-5 Days
== END 2020-01-12 16:15 | disposition home or self-care (01) ==
LOC: ED 12:02
DX: D57.00 Hb-SS disease with crisis, unspecified (principal); Z90.49 Acquired absence of other specified parts of digestive tract; Z98.890 Other specified postprocedural states; Z79.1 Long term (current) use of non-steroidal anti-inflammatories (NSAID); Z79.899 Other long term (current) drug therapy; Z88.8 Allergy status to other drugs, medicaments and biological substances
CPT/HCPCS: 36415; 71046; 80053; 84484; 85007; 85025; 85045; 93005; 96361; 96374; 96375; 99284; J1170; J1200; J1885; J7030

== ENCOUNTER 2020-01-13 03:56 | Emergency (ER) | payer MEDICARE ==
[2020-01-13] MEDS ORDERED: ASPIRIN 325 MG TAB PO ONE (04:17)
[2020-01-13 05:09] LABS: BUN/Creatinine Ratio 11; Blood Urea Nitrogen 9 mg/dL (9-20); Calcium 8.9 mg/dL (8.4-10.2); Hemolysis Index 14
[2020-01-13 05:40] LABS: Hematocrit 25.4 % (35.5-45.6); Hemoglobin 8.4 gm/dl (11.8-15.2); Mean Corpuscular HGB Conc 33 % (32-34); Mean Corpuscular Volume 92 fl (84-94); Platelet Count 243 K/mm3 (140-440); Red Blood Count 2.76 M/mm3 (3.65-5.03)
--- NOTE | 2020-01-13 05:51 | XRay Report ---
CHEST 1 VIEW INDICATION: Chest Pain. COMPARISON: Previous day. FINDINGS: Support devices: Chest port unchanged. Heart: Within normal limits. Lungs/Pleura: Interval decrease in lung volumes. Increased interstitial markings remain. Additional findings: Bony sclerosis remains. IMPRESSION: Mild decrease in lung volumes. Signer Name: Brannon Villafana MD Signed: 01/13/2020 5:47 AM Workstation Name: [id number]
[2020-01-13 06:05] LABS: Red Cell Distribution Width 23.2 % (13.2-15.2)
[2020-01-13 07:26] LABS: Anisocytosis 1+; Hypochromasia 1+; Sickle Cells 1+; Target Cells Few; Total Cells Counted 100
[2020-01-13 07:27] LABS: Platelet Estimate Consistent w Auto; Poikilocytosis 1+; Schistocytes Few
[2020-01-13] MEDS ORDERED: diphenhydrAMINE 50 MG/ML VIAL IV ONE (07:53)
[2020-01-13] MEDS ORDERED: SODIUM CHLORIDE 0.9% 1000 ML 1,000 ML IV ONE ×2 (07:53→09:37)
[2020-01-13] MEDS ORDERED: HYDROmorphone 2 MG/1 ML INJ IV ONE ×2 (07:53→09:37)
--- NOTE | 2020-01-13 07:53 | Emergency Department Report ---
ED Chest Pain HPI - General Chief Complaint: Chest Pain Stated Complaint: SICKLE CELL PAIN Time Seen by Provider: 01/13/20 07:36 Source: patient Mode of arrival: Stretcher Limitations: No Limitations - History of Present Illness Initial Comments: This is a 29-year-old -[place] male presents to the emergency department for the second day in a row with a complaint of right-sided chest pain and right upper back pain. Now the patient feels like the pain is causing him to feel short of breath. He denies any fever, nausea, lower extremity edema, vomiting or diaphoresis. Patient has a history of sickle cell anemia and says that this is consistent with previous sickle cell pain. He was seen here yesterday for the same symptoms and had a negative work-up, some relief of his chest discomfort, and was discharged home with a refill of his oral narcotic pain medication. Patient says that he started feeling worse at around 2:30 AM this morning and called for EMS. He did not receive anything in route. No recent travel or sick contacts at home. Patient's country printer is a Dr. Coker. He denies any tobacco or illicit drug use. - Related Data Home Medications Medication Instructions Recorded Confirmed Last Taken Deferasirox [Exjade] 500 mg PO DAILY 05/17/13 06/03/15 06/02/15 09:00 Hydroxyurea [Hydrea] 2,000 mg PO DAILY 01/03/14 06/03/15 06/02/15 09:00 Previous Rx's Medication Instructions Recorded Last Taken Type Folic Acid [Folvite] 1 mg PO DAILY #30 tablet 05/22/13 06/02/15 09:00 Rx HYDROcodone/APAP 10-325 [[place] 1 each PO Q6HR PRN #14 tablet 06/03/15 Unknown Rx 10/325] HYDROcodone/APAP 7.5-325 [[place] 1 each PO Q6HR PRN #20 tablet 11/12/15 Unknown Rx 7.5/325] oxyCODONE /ACETAMINOPHEN [Percocet 1 tab PO Q6HR PRN #10 tablet 11/12/15 Unknown Rx 5/325] HYDROcodone/ACETAMINOPHEN [[place] 1 each PO Q6HR PRN #10 tablet 03/18/18 Unknown Rx 5-325 Tablet] HYDROcodone/APAP 10-325 [[place] 1 each PO Q6H PRN #20 tablet 05/09/18 Unknown Rx 10-325 mg TAB] Ibuprofen [Motrin 800 MG tab] 800 mg PO Q8HR PRN #20 tablet 05/09/18 Unknown Rx Oxycodone HCl/Acetaminophen 1 each PO Q6HR PRN #12 tablet 07/15/19 Unknown Rx [Percocet 10/325 mg] Cyclobenzaprine [Flexeril] 10 mg PO QHS PRN #10 tablet 10/03/19 Unknown Rx Naproxen 500 mg PO Q12H PRN #12 tablet 10/03/19 Unknown Rx oxyCODONE /ACETAMINOPHEN [Percocet 1 tab PO Q6HR PRN #10 tablet 10/17/19 Unknown Rx 5/325] Cyclobenzaprine [Flexeril] 10 mg PO TID PRN #10 tablet 11/02/19 Unknown Rx HYDROcodone/APAP 5-325 [[place] 1 - 2 each PO Q6HR PRN #10 tablet 11/11/19 Unknown Rx 5/325] Ketorolac [Toradol] 10 mg PO Q6H PRN #12 tablet 01/12/20 Unknown Rx Oxycodone HCl/Acetaminophen 1 each PO Q6HR PRN #12 tablet 01/12/20 Unknown Rx [Percocet 10/325 mg] Allergies Allergy/AdvReac Type Severity Reaction Status Date / Time meperidine HCl [From Demerol] Allergy Unknown Verified 11/10/19 09:57 Heart Score - HEART Score History: Slightly suspicious EKG: Normal Age: < 45 Risk factors: No known risk factors Troponin: < normal limit HEART Score: 0 - Critical Actions Critical Actions: 0-3 pts:0.9-1.7%risk of adverse cardiac event.Candidate for discharge ED Review of Systems ROS: Stated complaint: SICKLE CELL PAIN Other details as noted in HPI Comment: All other systems reviewed and negative Constitutional: denies: chills, fever Eyes: denies: eye pain, vision change ENT: denies: ear pain, throat pain Respiratory: shortness of breath. denies: cough Cardiovascular: chest pain. denies: palpitations Gastrointestinal: denies: abdominal pain, vomiting Genitourinary: denies: dysuria, discharge Musculoskeletal: back pain. denies: arthralgia Skin: denies: rash, lesions Neurological: denies: headache, weakness ED Past Medical Hx - Past Medical History Previous Medical History?: Yes Hx Sickle Cell Disease: Yes Hx COPD: No Additional medical history: Bilateral hip AVN - Surgical History Past Surgical History?: Yes Hx Cholecystectomy: Yes Additional Surgical History: port right chest wall - Social History Smoking Status: Current Some Day Smoker - Medications Home Medications: Home Medications Medication Instructions Recorded Confirmed Last Taken Type Deferasirox [Exjade] 500 mg PO DAILY 05/17/13 06/03/15 06/02/15 09:00 History Folic Acid [Folvite] 1 mg PO DAILY #30 tablet 05/22/13 06/03/15 06/02/15 09:00 Rx Hydroxyurea [Hydrea] 2,000 mg PO DAILY 01/03/14 06/03/15 06/02/15 09:00 History HYDROcodone/APAP 10-325 [[place] 1 each PO Q6HR PRN #14 tablet 06/03/15 Unknown Rx 10/325] HYDROcodone/APAP 7.5-325 [[place] 1 each PO Q6HR PRN #20 tablet 11/12/15 Unknown Rx 7.5/325] oxyCODONE /ACETAMINOPHEN [Percocet 1 tab PO Q6HR PRN #10 tablet 11/12/15 Unknown Rx 5/325] HYDROcodone/ACETAMINOPHEN [[place] 1 each PO Q6HR PRN #10 tablet 03/18/18 Unknown Rx 5-325 Tablet] HYDROcodone/APAP 10-325 [[place] 1 each PO Q6H PRN #20 tablet 05/09/18 Unknown Rx 10-325 mg TAB] Ibuprofen [Motrin 800 MG tab] 800 mg PO Q8HR PRN #20 tablet 05/09/18 Unknown Rx Oxycodone HCl/Acetaminophen 1 each PO Q6HR PRN #12 tablet 07/15/19 Unknown Rx [Percocet 10/325 mg] Cyclobenzaprine [Flexeril] 10 mg PO QHS PRN #10 tablet 10/03/19 Unknown Rx Naproxen 500 mg PO Q12H PRN #12 tablet 10/03/19 Unknown Rx oxyCODONE /ACETAMINOPHEN [Percocet 1 tab PO Q6HR PRN #10 tablet 10/17/19 Unknown Rx 5/325] Cyclobenzaprine [Flexeril] 10 mg PO TID PRN #10 tablet 11/02/19 Unknown Rx HYDROcodone/APAP 5-325 [[place] 1 - 2 each PO Q6HR PRN #10 tablet 11/11/19 Unknown Rx 5/325] Ketorolac [Toradol] 10 mg PO Q6H PRN #12 tablet 01/12/20 Unknown Rx Oxycodone HCl/Acetaminophen 1 each PO Q6HR PRN #12 tablet 01/12/20 Unknown Rx [Percocet 10/325 mg] ED Physical Exam - General Limitations: No Limitations - Other Other exam information: GENERAL: The patient is well-developed well-nourished. HENT: Normocephalic. Atraumatic. Patient has moist mucous membranes. EYES: Extraocular motions are intact. NECK: Supple. Trachea is midline. CHEST/LUNGS: Clear to auscultation. There is no respiratory distress noted. There is some reproducible right-sided chest pain to palpation of the chest wall. No crepitus or deformity. HEART/CARDIOVASCULAR: Regular. There is no tachycardia. There is no murmur. ABDOMEN: Abdomen is soft, nontender. Patient has normal bowel sounds. SKIN: Skin is warm and dry. NEURO: The patient is awake, alert, and oriented. The patient is cooperative. The patient has no focal neurologic deficits. Normal speech. MUSCULOSKELETAL: There is no tenderness or deformity. There is no limitation range of motion. BACK: No midline thoracic or lumbar tenderness to palpation. There is reproducible right sided upper thoracic paraspinal tenderness to palpation. ED Course Vital Signs 01/13/20 01/13/20 01/13/20 04:03 08:35 09:55 Temperature 97.9 F Pulse Rate 57 L Respiratory 12 18 18 Rate Blood Pressure 103/60 Blood Pressure [Left] O2 Sat by Pulse 98 Oximetry 01/13/20 11:30 Temperature Pulse Rate 68 Respiratory 18 Rate Blood Pressure Blood Pressure 112/62 [Left] O2 Sat by Pulse 98 Oximetry JOE score - Joe Score Age > 65: (0) No Aspirin use within the Past 7 Days: (0) No 3 or more CAD Risk Factors: (0) No 2 or more Angina events in past 24 hrs: (1) Yes (If pain is considered angina) Known CAD with more than 50% Stenosis: (0) No Elevated Cardiac Markers: (0) No ST Deviation Greater than 0.5mm: (0) No JOE Score: 1 ED Medical Decision Making - Lab Data Result diagrams: 01/13/20 04:34 01/13/20 04:34 - EKG Data -: EKG Interpreted by Me EKG shows normal: sinus rhythm, axis, intervals, QRS complexes, ST-T waves Rate: bradycardia (57 bpm) - EKG Data When compared to previous EKG there are: no significant change Interpretation: unchanged when compared t (02/05/14) - Radiology Data Radiology results: report reviewed, image reviewed interpreted by me: Chest x-ray does not show any acute process. There are no pleural effusions, obvious pneumonia and there is no pneumothorax. No significant cardiomegaly. Nuclear medicine perfusion scan was done and resulted as low probability for a pulmonary embolism - Medical Decision Making This is a 29-year-old sickle cell patient who presented with a return of his right-sided chest and back pains. On examination heart and lung sounds are normal to auscultation. Pain is reproducible to palpation of the chest wall and back. EKG does not have any morphology consistent with ST elevation [place]. Chest x-ray does not show any pneumonia, pleural effusions, pneumothorax, or any other acute process. With these results the patient does not appear to have any acute chest crisis. Patient's labs shows a leukocytosis of 18,000, reticul ocyte count of 11, and these numbers are consistent with if not improved from previous visits. Patient also has negative troponins x2. He had an elevated d- dimer level so a ventilation perfusion scan was done that came back low probability for a pulmonary embolism. He was given 2 rounds of IV analgesia and says he is feeling greatly improved and asking for discharge home. Patient is low on the heart and JOE score. He has been instructed to follow-up with primary care and to return to the ER with any worsening of his symptoms or with any acute distress. Critical Care Time: No Critical care attestation.: If time is entered above; I have spent that time in minutes in the direct care of this critically ill patient, excluding procedure time. ED Disposition Clinical Impression: Sickle cell crisis, Atypical chest pain Disposition: DC-01 TO HOME OR SELFCARE Is pt being admited?: No Condition: Stable Instructions: Costochondritis (ED), Sickle Cell Crisis (ED) Additional Instructions: Please follow-up with your country printer/PCP in the next few days. Return to the emergency department with any worsening of your symptoms or with any acute distress. Referrals: PRIMARY CARE, [Primary Care Provider] - 2-3 Days Forms: Work/School Release Form(ED) Time of Disposition: 11:20
[2020-01-13] MEDS ORDERED: KETOROLAC 30 MG/1 ML INJ IV ONE (09:38)
--- NOTE | 2020-01-13 11:15 | Nuclear Medicine Report ---
NUCLEAR MEDICINE PERFUSION LUNG SCAN INDICATION / CLINICAL INFORMATION: CP, elevated dimer. TECHNIQUE: 5 mCi of Tc-99m MAA were given by IV. COMPARISON: Chest radiograph dated 01/13/2020. FINDINGS: PERFUSION: Small nonsegmental defect in the posterior right lung. ADDITIONAL FINDINGS: None. IMPRESSION: 1. Low probability for pulmonary embolism. Signer Name: Benedicto Redd MD Signed: 01/13/2020 11:10 AM Workstation Name: [id number]
[2020-01-13 11:51] VITALS: BP 112/62
== END 2020-01-13 11:30 | disposition home or self-care (01) ==
LOC: ED 03:56
DX: D57.00 Hb-SS disease with crisis, unspecified (principal); R07.89 Other chest pain; F17.200 Nicotine dependence, unspecified, uncomplicated; Z90.49 Acquired absence of other specified parts of digestive tract; Z98.890 Other specified postprocedural states; Z79.1 Long term (current) use of non-steroidal anti-inflammatories (NSAID); Z79.899 Other long term (current) drug therapy; Z88.8 Allergy status to other drugs, medicaments and biological substances
CPT/HCPCS: 36415; 71045; 78580; 80048; 84484; 85007; 85025; 85045; 85379; 93005; 96361; 96374; 96375; 96376; 99284; A9540; J1170; J1200; J1885; J7030

== ENCOUNTER 2020-02-11 08:54 | Emergency (ER) | payer MEDICARE ==
[2020-02-11] MEDS ORDERED: SODIUM CHLORIDE 0.9% 1000 ML 1,000 ML IV ONE (10:10)
[2020-02-11] MEDS ORDERED: KETOROLAC 30 MG/1 ML INJ IV ONE (10:10)
[2020-02-11] MEDS ORDERED: diphenhydrAMINE 50 MG/ML VIAL IV ONE (10:10)
[2020-02-11] MEDS ORDERED: HYDROmorphone 2 MG/1 ML INJ IV ONE (10:10)
--- NOTE | 2020-02-11 10:10 | Emergency Department Report ---
ED General Adult HPI - General Chief complaint: Sickle Cell Crisis Stated complaint: SICKLE CELL CRISIS Time Seen by Provider: 02/11/20 10:02 Source: patient Mode of arrival: Ambulatory Limitations: No Limitations - History of Present Illness Initial comments: 29-year-old male history of sickle cell anemia presents to ED complaining of pain crisis. Patient is reporting pain in bilateral lower extremities and bilateral elbows. Patient states pain began yesterday afternoon. He reports taking Aleve and Percocet without relief. Patient denies any fever, chest pain, shortness of breath. Psychologist Counseling: Dr Simmons -: days(s) (1) Location: left, right, upper extremity, lower extremity Severity scale (0 -10): 0 Quality: aching Consistency: constant Improves with: none Worsens with: movement Associated Symptoms: denies: chest pain, cough, fever/chills, nausea/vomiting, shortness of breath Treatments Prior to Arrival: NSAID, other (Percocet) - Related Data Home Medications Medication Instructions Recorded Confirmed Last Taken Deferasirox [Exjade] 500 mg PO DAILY 05/17/13 06/03/15 06/02/15 09:00 Hydroxyurea [Hydrea] 2,000 mg PO DAILY 01/03/14 06/03/15 06/02/15 09:00 Previous Rx's Medication Instructions Recorded Last Taken Type Folic Acid [Folvite] 1 mg PO DAILY #30 tablet 05/22/13 06/02/15 09:00 Rx HYDROcodone/APAP 10-325 [[place] 1 each PO Q6HR PRN #14 tablet 06/03/15 Unknown Rx 10/325] HYDROcodone/APAP 7.5-325 [[place] 1 each PO Q6HR PRN #20 tablet 11/12/15 Unknown Rx 7.5/325] oxyCODONE /ACETAMINOPHEN [Percocet 1 tab PO Q6HR PRN #10 tablet 11/12/15 Unknown Rx 5/325] HYDROcodone/ACETAMINOPHEN [[place] 1 each PO Q6HR PRN #10 tablet 03/18/18 Unknown Rx 5-325 Tablet] HYDROcodone/APAP 10-325 [[place] 1 each PO Q6H PRN #20 tablet 05/09/18 Unknown Rx 10-325 mg TAB] Ibuprofen [Motrin 800 MG tab] 800 mg PO Q8HR PRN #20 tablet 05/09/18 Unknown Rx Oxycodone HCl/Acetaminophen 1 each PO Q6HR PRN #12 tablet 07/15/19 Unknown Rx [Percocet 10/325 mg] Cyclobenzaprine [Flexeril] 10 mg PO QHS PRN #10 tablet 10/03/19 Unknown Rx Naproxen 500 mg PO Q12H PRN #12 tablet 10/03/19 Unknown Rx oxyCODONE /ACETAMINOPHEN [Percocet 1 tab PO Q6HR PRN #10 tablet 10/17/19 Unknown Rx 5/325] Cyclobenzaprine [Flexeril] 10 mg PO TID PRN #10 tablet 11/02/19 Unknown Rx HYDROcodone/APAP 5-325 [[place] 1 - 2 each PO Q6HR PRN #10 tablet 11/11/19 Unknown Rx 5/325] Ketorolac [Toradol] 10 mg PO Q6H PRN #12 tablet 01/12/20 Unknown Rx Oxycodone HCl/Acetaminophen 1 each PO Q6HR PRN #12 tablet 01/12/20 Unknown Rx [Percocet 10/325 mg] Allergies Allergy/AdvReac Type Severity Reaction Status Date / Time meperidine HCl [From Demerol] Allergy Unknown Verified 11/10/19 09:57 ED Review of Systems ROS: Stated complaint: SICKLE CELL CRISIS Other details as noted in HPI Comment: All other systems reviewed and negative Constitutional: denies: chills, fever Respiratory: denies: shortness of breath Cardiovascular: denies: chest pain Musculoskeletal: as per HPI ED Past Medical Hx - Past Medical History Previous Medical History?: Yes Hx Sickle Cell Disease: Yes Hx COPD: No Additional medical history: Bilateral hip AVN - Surgical History Hx Cholecystectomy: Yes Additional Surgical History: port right chest wall - Social History Smoking Status: Never Smoker Substance Use Type: None - Medications Home Medications: Home Medications Medication Instructions Recorded Confirmed Last Taken Type Deferasirox [Exjade] 500 mg PO DAILY 05/17/13 06/03/15 06/02/15 09:00 History Folic Acid [Folvite] 1 mg PO DAILY #30 tablet 05/22/13 06/03/15 06/02/15 09:00 Rx Hydroxyurea [Hydrea] 2,000 mg PO DAILY 01/03/14 06/03/15 06/02/15 09:00 History HYDROcodone/APAP 10-325 [[place] 1 each PO Q6HR PRN #14 tablet 06/03/15 Unknown Rx 10/325] HYDROcodone/APAP 7.5-325 [[place] 1 each PO Q6HR PRN #20 tablet 11/12/15 Unknown Rx 7.5/325] oxyCODONE /ACETAMINOPHEN [Percocet 1 tab PO Q6HR PRN #10 tablet 11/12/15 Unknown Rx 5/325] HYDROcodone/ACETAMINOPHEN [[place] 1 each PO Q6HR PRN #10 tablet 03/18/18 Unknown Rx 5-325 Tablet] HYDROcodone/APAP 10-325 [[place] 1 each PO Q6H PRN #20 tablet 05/09/18 Unknown Rx 10-325 mg TAB] Ibuprofen [Motrin 800 MG tab] 800 mg PO Q8HR PRN #20 tablet 05/09/18 Unknown Rx Oxycodone HCl/Acetaminophen 1 each PO Q6HR PRN #12 tablet 07/15/19 Unknown Rx [Percocet 10/325 mg] Cyclobenzaprine [Flexeril] 10 mg PO QHS PRN #10 tablet 10/03/19 Unknown Rx Naproxen 500 mg PO Q12H PRN #12 tablet 10/03/19 Unknown Rx oxyCODONE /ACETAMINOPHEN [Percocet 1 tab PO Q6HR PRN #10 tablet 10/17/19 Unknown Rx 5/325] Cyclobenzaprine [Flexeril] 10 mg PO TID PRN #10 tablet 11/02/19 Unknown Rx HYDROcodone/APAP 5-325 [[place] - 2 each PO Q6HR PRN #10 tablet 11/11/19 Unknown Rx 5/325] Ketorolac [Toradol] 10 mg PO Q6H PRN #12 tablet 01/12/20 Unknown Rx Oxycodone HCl/Acetaminophen 1 each PO Q6HR PRN #12 tablet 01/12/20 Unknown Rx [Percocet 10/325 mg] ED Physical Exam - General Limitations: No Limitations General appearance: alert, in no apparent distress - Head Head exam: Present: atraumatic, normocephalic - Eye Eye exam: Present: normal appearance, EOMI - ENT ENT exam: Present: mucous membranes moist - Neck Neck exam: Present: normal inspection - Respiratory Respiratory exam: Present: normal lung sounds bilaterally. Absent: respiratory distress - Cardiovascular Cardiovascular Exam: Present: regular rate, normal rhythm - GI/Abdominal GI/Abdominal exam: Present: soft. Absent: distended, tenderness - Extremities Exam Extremities exam: Present: normal inspection - Neurological Exam Neurological exam: Present: alert, oriented X3 - Psychiatric Psychiatric exam: Present: normal affect, normal mood - Skin Skin exam: Present: warm, dry, intact, normal color ED Course Vital Signs 02/11/20 02/11/20 02/11/20 09:04 09:46 09:47 Temperature 97.9 F Pulse Rate 74 70 Respiratory 18 18 Rate Blood Pressure 98/49 96/49 Blood Pressure 98/49 [Right] O2 Sat by Pulse 99 98 100 Oximetry 02/11/20 02/11/20 02/11/20 10:00 10:30 11:00 Temperature Pulse Rate 69 73 65 Respiratory 14 19 13 Rate Blood Pressure 101/66 109/66 101/66 Blood Pressure [Right] O2 Sat by Pulse 99 98 99 Oximetry 02/11/20 02/11/20 02/11/20 11:30 12:00 12:30 Temperature Pulse Rate 77 73 72 Respiratory 11 L 10 L 10 L Rate Blood Pressure 103/71 102/66 104/68 Blood Pressure [Right] O2 Sat by Pulse 91 91 90 Oximetry 02/11/20 13:00 Temperature Pulse Rate 66 Respiratory 9 L Rate Blood Pressure 112/65 Blood Pressure [Right] O2 Sat by Pulse 93 Oximetry ED Medical Decision Making - Lab Data Result diagrams: 02/11/20 09:49 02/11/20 09:49 - Medical Decision Making 29-year-old male presents to ED with sickle cell pain crisis. Patient reports pain in bilateral lower extremities and bilateral elbows, which is where he usu ally experiences his pain crises. Patient denies any chest pain, shortness of breath, fever. Hemoglobin is currently 8.7, with retic count of 10. Patient has received IV fluids, Toradol, Benadryl, and 2 doses of Dilaudid. He is feeling much better at this time. Patient will be discharged home. 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 - Differential Diagnosis Sickle cell pain crisis, anemia Critical care attestation.: If time is entered above; I have spent that time in minutes in the direct care of this critically ill patient, excluding procedure time. ED Disposition Clinical Impression: Sickle cell crisis Disposition: DC-01 TO HOME OR SELFCARE Is pt being admited?: No Condition: Stable Instructions: Sickle Cell Crisis (ED) Referrals: PRIMARY CARE, [Referring] - 3-5 Days Time of Disposition: 13:19
[2020-02-11 10:45] LABS: Hematocrit 25.3 % (35.5-45.6); Hemoglobin 8.7 gm/dl (11.8-15.2); Mean Corpuscular HGB Conc 34 % (32-34); Mean Corpuscular Volume 85 fl (84-94); Red Blood Count 2.96 M/mm3 (3.65-5.03)
[2020-02-11 10:46] LABS: Platelet Count 271 K/mm3 (140-440); Red Cell Distribution Width 26.1 % (13.2-15.2)
[2020-02-11 11:03] LABS: BUN/Creatinine Ratio 14; Blood Urea Nitrogen 11 mg/dL (9-20); Calcium 9.5 mg/dL (8.4-10.2); Hemolysis Index 46
[2020-02-11 11:46] LABS: Total Cells Counted 100
[2020-02-11 11:47] LABS: Anisocytosis 3+; Hypochromasia 1+; Poikilocytosis 1+
[2020-02-11 11:48] LABS: Sickle Cells Few; Target Cells 1+
[2020-02-11 11:49] LABS: Ovalocytes Few; Platelet Estimate Consistent w Auto
[2020-02-11] MEDS ORDERED: HYDROmorphone 1 MG/1 ML INJ IV ONE (12:22)
[2020-02-11 13:31] VITALS: BP 112/65
== END 2020-02-11 13:30 | disposition home or self-care (01) ==
LOC: ED 08:54
DX: D57.819 Other sickle-cell disorders with crisis, unspecified (principal)
CPT/HCPCS: 36415; 80048; 85007; 85025; 85045; 96361; 96374; 96375; 96376; 99283; J1170; J1200; J1885; J7030

== ENCOUNTER 2020-02-24 08:33 | Emergency (ER) | payer MEDICARE | END 2020-02-24 11:27 | disposition left against medical advice (07) | LOC: ED 08:33 | DX: D57.1 Sickle-cell disease without crisis (principal); Z53.21 Procedure and treatment not carried out due to patient leaving prior to being seen by health care provider ==

== ENCOUNTER 2020-02-28 19:44 | Emergency (ER) | payer MEDICARE ==
[2020-02-28] MEDS ORDERED: ASPIRIN 325 MG TAB PO ONE (20:17)
[2020-02-28 20:51] LABS: Hematocrit 22.6 % (35.5-45.6); Hemoglobin 7.5 gm/dl (11.8-15.2); Mean Corpuscular HGB Conc 33 % (32-34); Mean Corpuscular Volume 89 fl (84-94); Platelet Count 373 K/mm3 (140-440); Red Blood Count 2.53 M/mm3 (3.65-5.03)
[2020-02-28 20:58] LABS: Red Cell Distribution Width 25.9 % (13.2-15.2)
[2020-02-28 21:02] LABS: Blood Urea Nitrogen 10 mg/dL (9-20); Calcium 8.9 mg/dL (8.4-10.2); Hemolysis Index 24
[2020-02-28 21:05] LABS: BUN/Creatinine Ratio 14
--- NOTE | 2020-02-28 21:05 | XRay Report ---
CHEST 2 VIEWS INDICATION: Chest Pain. COMPARISON: 01/13/2020 FINDINGS: Support devices: [id number]-b-[id number] catheter is present. Heart: Within normal limits. Lungs: No acute air space or interstitial disease. Pleura: No significant pleural effusion. No pneumothorax. Additional findings: Diffuse bony changes present consistent with sickle cell disease. IMPRESSION: 1. No acute findings. Signer Name: Clark Nair MD Signed: 02/28/2020 9:01 PM Workstation Name: [id number]
[2020-02-28 21:37] LABS: Anisocytosis 2+; Band Neutrophils # (Manual) 0.1 K/mm3; Sickle Cells Few; Total Cells Counted 100
[2020-02-28 21:38] LABS: Poikilocytosis Few
[2020-02-28 21:39] LABS: Hypochromasia Few; Target Cells 1+
[2020-02-28 21:40] LABS: Ovalocytes Few; Platelet Estimate Consistent w Auto
[2020-02-29] MEDS ORDERED: HYDROmorphone 2 MG/1 ML INJ IV ONE (00:07)
[2020-02-29] MEDS ORDERED: KETOROLAC 30 MG/1 ML INJ IV ONE (00:10)
[2020-02-29] MEDS ORDERED: diphenhydrAMINE 50 MG/ML VIAL IV ONE (00:10)
[2020-02-29] MEDS ORDERED: SODIUM CHLORIDE 0.9% 1000 ML 1,000 ML ONE (00:49)
[2020-02-29] MEDS ORDERED: SODIUM CHLORIDE 0.9% 1000 ML 1,000 ML IV ONE ×2 (00:49→01:40)
[2020-02-29] MEDS ORDERED: HYDROmorphone 1 MG/1 ML INJ IV ONE (01:40)
--- NOTE | 2020-02-29 01:43 | Emergency Department Report ---
HPI - General Chief Complaint: Chest Pain Time Seen by Provider: 02/29/20 00:05 - HPI HPI: This is a 29-year-old -[place] male presents to the emergency department complaint of a 2-day history of whole body pain that he says is secondary to a sickle cell pain crisis. This even includes some chest tightness. He denies any fever, extremity swelling, nausea, vomiting or diaphoresis. Patient is currently a 9 out of 10 intensity despite using [id number] anti- inflammatories, as well as his prescribed Percocet 10 mg. He follows with a hem atologist, Dr. Tena, whom he says he last saw on Monday, 5 days ago. No recent travel or sick contacts at home. No known exposure and with COVID-19. He denies any tobacco or illicit drug use. ED Past Medical Hx - Past Medical History Previous Medical History?: Yes Hx Sickle Cell Disease: Yes Hx COPD: No Additional medical history: Bilateral hip AVN - Surgical History Past Surgical History?: Yes Hx Cholecystectomy: Yes Additional Surgical History: port right chest wall - Social History Smoking Status: Never Smoker Substance Use Type: None - Medications Home Medications: Home Medications Medication Instructions Recorded Confirmed Last Taken Type Deferasirox [Exjade] 500 mg PO DAILY 05/17/13 06/03/15 06/02/15 09:00 History Folic Acid [Folvite] 1 mg PO DAILY #30 tablet 05/22/13 06/03/15 06/02/15 09:00 Rx Hydroxyurea [Hydrea] 2,000 mg PO DAILY 01/03/14 06/03/15 06/02/15 09:00 History HYDROcodone/APAP 10-325 [[place] 1 each PO Q6HR PRN #14 tablet 06/03/15 Unknown Rx 10/325] HYDROcodone/APAP 7.5-325 [[place] 1 each PO Q6HR PRN #20 tablet 11/12/15 Unknown Rx 7.5/325] oxyCODONE /ACETAMINOPHEN [Percocet 1 tab PO Q6HR PRN #10 tablet 11/12/15 Unknown Rx 5/325] HYDROcodone/ACETAMINOPHEN [[place] 1 each PO Q6HR PRN #10 tablet 03/18/18 Unknown Rx 5-325 Tablet] HYDROcodone/APAP 10-325 [[place] 1 each PO Q6H PRN #20 tablet 05/09/18 Unknown Rx 10-325 mg TAB] Ibuprofen [Motrin 800 MG tab] 800 mg PO Q8HR PRN #20 tablet 05/09/18 Unknown Rx Oxycodone HCl/Acetaminophen 1 each PO Q6HR PRN #12 tablet 07/15/19 Unknown Rx [Percocet 10/325 mg] Cyclobenzaprine [Flexeril] 10 mg PO QHS PRN #10 tablet 10/03/19 Unknown Rx Naproxen 500 mg PO Q12H PRN #12 tablet 10/03/19 Unknown Rx oxyCODONE /ACETAMINOPHEN [Percocet 1 tab PO Q6HR PRN #10 tablet 10/17/19 Unknown Rx 5/325] Cyclobenzaprine [Flexeril] 10 mg PO TID PRN #10 tablet 11/02/19 Unknown Rx HYDROcodone/APAP 5-325 [[place] 1 - 2 each PO Q6HR PRN #10 tablet 11/11/19 Unknown Rx 5/325] Ketorolac [Toradol] 10 mg PO Q6H PRN #12 tablet 01/12/20 Unknown Rx Oxycodone HCl/Acetaminophen 1 each PO Q6HR PRN #12 tablet 01/12/20 Unknown Rx [Percocet 10/325 mg] ED Review of Systems ROS: Stated complaint: SICKLE CELL PAIN Other details as noted in HPI Comment: All other systems reviewed and negative Constitutional: denies: chills, fever Eyes: denies: eye pain, vision change ENT: denies: ear pain, throat pain Respiratory: denies: cough, shortness of breath Cardiovascular: chest pain. denies: palpitations, edema Gastrointestinal: denies: abdominal pain, vomiting Genitourinary: denies: dysuria, discharge Musculoskeletal: back pain, myalgia. denies: joint swelling Skin: denies: rash, lesions Neurological: denies: headache, weakness Physical Exam - Physical Exam Vital Signs: Vital Signs 02/28/20 02/29/20 02/29/20 20:09 00:45 00:52 Temperature 99.0 F Pulse Rate 84 76 Respiratory 16 17 18 Rate Blood Pressure 100/64 100/43 O2 Sat by Pulse 100 100 Oximetry 02/29/20 02/29/20 02/29/20 00:53 01:00 01:30 Temperature Pulse Rate 65 70 Respiratory 18 18 19 Rate Blood Pressure 106/54 99/55 O2 Sat by Pulse 96 99 Oximetry Physical Exam: GENERAL: The patient is well-developed well-nourished. HENT: Normocephalic. Atraumatic. Patient has moist mucous membranes. EYES: Extraocular motions are intact. NECK: Supple. Trachea is midline. CHEST/LUNGS: Clear to auscultation. There is no respiratory distress noted. HEART/CARDIOVASCULAR: Regular. There is no tachycardia. There is no murmur. ABDOMEN: Abdomen is soft, nontender. Patient has normal bowel sounds. SKIN: Skin is warm and dry. NEURO: The patient is awake, alert, and oriented. The patient is cooperative. The patient has no focal neurologic deficits. Normal speech. MUSCULOSKELETAL: There is no tenderness or deformity. There is no limitation range of motion. BACK: No midline thoracic or lumbar tenderness to palpation. ED Course Vital Signs 02/28/20 02/29/20 02/29/20 20:09 00:45 00:52 Temperature 99.0 F Pulse Rate 84 76 Respiratory 16 17 18 Rate Blood Pressure 100/64 100/43 O2 Sat by Pulse 100 100 Oximetry 02/29/20 02/29/20 02/29/20 00:53 01:00 01:30 Temperature Pulse Rate 65 70 Respiratory 18 18 19 Rate Blood Pressure 106/54 99/55 O2 Sat by Pulse 96 99 Oximetry ED Medical Decision Making - Lab Data Result diagrams: 02/28/20 20:27 02/28/20 20:27 - EKG Data -: EKG Interpreted by Me EKG shows normal: sinus rhythm, axis, intervals, QRS complexes, ST-T waves Rate: normal - EKG Data When compared to previous EKG there are: no significant change Interpretation: unchanged when compared t (01/13/20) - Radiology Data Radiology results: image reviewed interpreted by me: Chest x-ray does not show any acute process. There are no pleural effusions, obvious pneumonia and there is no pneumothorax. No significant cardiomegaly. - Medical Decision Making This patient presents with a complaint of generalized pain secondary to a sickle cell pain crisis. Through triage that also included some chest tightness so the patient received more of a cardiac work-up prior to my initial examination and orders. EKG did not have any morphology consistent with ST elevation [place]. Chest x-ray did not show any pneumonia, pleural effusions, pneumothorax, or any other acute process. His vital signs were reassuring throughout his ED course inc luding being afebrile. Patient does not appear to have any acute chest crisis. His labs have been consistent with previous visits. Hemoglobin of 7.3 was slightly decreased from his last visit but is not at a level that requires transfusion and the patient does not appear to be having symptomatic anemia. His reticulocyte count is slightly decreased from his previous visit. Normal electrolytes and negative troponins x2. Patient was given IV fluid resuscitation and 2 doses of IV analgesia and his pain is better controlled, down to a 4 from an original level of 10/10. Patient was seen ambulatory throughout the emergency department. He has good outpatient follow-up with hematology. For all these reasons patient appears safe for discharge home. He has been instructed to return to the emergency department with any worsening of symptoms or with any acute distress. Critical Care Time: No Critical care attestation.: If time is entered above; I have spent that time in minutes in the direct care of this critically ill patient, excluding procedure time. 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 Return to the emergency department with any worsening of your symptoms, new or concerning symptoms not addressed during this current emergency department visit, or with any acute distress. Referrals: PRIMARY MD ALONDRA [Primary Care Provider] - 2-3 Days Time of Disposition: 01:58
[2020-02-29 02:44] VITALS: BP 109/62
== END 2020-02-29 03:05 | disposition home or self-care (01) ==
LOC: ED 19:44
DX: D57.818 Other sickle-cell disorders with crisis with other specified complication (principal); Z88.1 Allergy status to other antibiotic agents; Z90.49 Acquired absence of other specified parts of digestive tract; Z79.899 Other long term (current) drug therapy
CPT/HCPCS: 36415; 71046; 80048; 84484; 85007; 85025; 85045; 93005; 96361; 96374; 96375; 96376; 99284; J1170; J1200; J1885; J7030